=== PATIENT | female | born 1950 | race Caucasian/White ===

== ENCOUNTER 2024-05-06 08:22 | Emergency (ER) | payer MEDICARE, SELFPAY ==
[2024-05-06] VITALS (47 sets, daily range): BP systolic 106–185; BP diastolic 53–97; PULSE 73–100; RESP 15–31; TEMP 36.8–37.8; O2SAT 97–100; BMI 23.3
--- NOTE | 2024-05-06 08:31 | ED.CHESTPAIN ---
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 medical evaluation for this condition in [facility] yesterday, referred here but not seen yesterday, now here for coordination of care. Afebrile, sirs screen negative. Large open draining purulent wound left breast,, with yellow exudate, wound culture sent. Blood culture sent. Lactate and other labs pending. IV vancomycin and cefepime antibiotics initiated after wound and blood cultures. Screening chest x-ray without obvious pleural effusion underlying, nor left lung or mediastinal masses, there is soft tissue shadowing demonstrates soft tissue defect mid left breast on my view, await Radiology reading. CT chest abdomen and pelvis imaging to further delineate extent of suspected tumor/infection, also to look for any metastatic disease below the diaphragm. Anticipate transfer, patient aware. Keep NPO. Patient declines pain medications for now. White blood cell count 52075, lactate mildly elevated, cultures and antibiotics initiated, IV fluid bolus. Hemoglobin 7.2 noted, no signs symptoms on review of systems recent active GI or bleeding, apparently the wound itself has not been bleeding actively. Awaiting CT chest abdomen and pelvis results CT shows extensive left breast area mass with necrotic changes, some mentioned of mediastinal involvement anteriorly. No description of definite subdiaphragmatic metastases like changes. Case discussed with general surgery here Dr. Adams, agrees with need for transfer to higher level care Patient informed, advised transfer to higher level tertiary care facility with cardiothoracic surgery, general surgery, plastic surgery, oncology, etc. Patient expresses understanding, bed search in progress 1145, case discussed with hospitalist Dr. Hall at [facility], there is not great plastic surgery coverage there, suggests tertiary center such as /[facility]. Patient had requested social work administrator consultation, unclear if patient is still consenting to transfer, consider hospice consult. 1210, case discussed with intake, await call back from surgery 1340, case discussed with breast surgery [facility] Dr. Booth, requests patient have admission through hospitalist service, with Oncology, patient will need core biopsy diagnosis of underlying cancer, but would be available for consultation 1600, still awaiting call back from hospitalist per update phone call [place] [facility] [place], declines for saturation, [facility] contacted Repeat hemoglobin 6.8, initially was 7.2 before IV hydration, no active bleeding known, type and screen sent prior, we will transfuse 1 unit packed red blood cells 1830, still awaiting transfer, unclear destination at this time, signed out to oncoming ED shift physician Dr. Ivelisse oviedo: Received turned over. Review patient's history and physical exam. Patient remained stable. I did discuss the case with Dr. Alanis hospitalist at [facility] who accepts the patient in transfer. I do feel patient requires transfer for higher level of care given her social situations in the extent of the necrotic tissue. She has received a dose of antibiotics. Patient is stable for transport. Critical Care Time <Marcus Hamilton MD - Last Filed: 05/07/24 08:12> Critical Care Time Critical Care Time: Yes Total Critical Care Time: 45 Attestation: The high probability of a clinically significant, sudden or life threatening deterioration of the [mammary, cardiopulmonary, musculoskeletal, integumen] system(s) required my full and direct attention, intervention and personal management. The aggregate critical care time was [45] minutes. This time is in addition to time spent performing reported procedures but includes the following: [x] Data Review and interpretation [x] Patient assessment and monitoring of vital signs [x] Documentation [x] Medication orders and management Discharge Plan Departure Patient Disposition: [facility] Clinical Impression: Open wound of left breast, Breast cancer, Mass of mediastinum, Wound infection, Sepsis, Anemia Prescriptions: No Action No Known Home Medications Referrals: Eliza Wallace PA-C [Primary Care Provider] -
--- NOTE | 2024-05-06 08:33 | EKG_ITS ---
[address] [address] Test Date: 2024-05-06 Pat Name: Loren Ragland Department: [facility] Room: Gender: Female C Java Developer: ernestine : 1950 Requested By: Order Number: [id number] Reading MD: Forrest Burch Measurements Intervals [place] Rate: 87 P: 29 WA: 158 QRS: 12 QRSD: 88 T: 13 QT: 370 QTc: 445 Interpretive Statements Normal sinus rhythm Doubt rule out Anterior infarct , age undetermined Electronically Signed On 05-12-2024 9:05:50 PDT by Forrest Burch
[2024-05-06 08:54] LABS: Add Manual Diff / Slide Review NO; Basophils Absolute Auto 100 /uL (0-100); Basophils Percent Auto 0.8 % (0-2); Eosinophils Absolute Auto 100 /uL (0-450); Eosinophils Percent Auto 0.5 % (2-4); Hematocrit 21.9 % (36-46); Hemoglobin 7.2 g/dL (12.0-16.0); Lymphocytes Absolute Auto 1200 /uL (1100-4500); Lymphocytes Percent Auto 7.8 % (25-40); Mean Corpuscular Hemoglobin 27.1 PG (26-34); Mean Corpuscular Volume 81.9 fL (80-100); Monocytes Absolute Auto 1300 /uL (0-900); Monocytes Percent Auto 8.1 % (3-14); Neutrophils Absolute Auto 12800 /uL (1500-7000); Neutrophils Percent Auto 82.8 % (50-75); Platelet Count 755 X10^3/uL (150-400); Red Blood Cell Count 2.68 X10^6/uL (4.0-5.2); Red Cell Distribution Width 18.3 % (11.6-14.8); White Blood Cell Count 15.5 X10^3/uL (4.5-11.0)
--- NOTE | 2024-05-06 08:54 | DI.CT.S_ITS ---
PROCEDURE: CT CHEST ABD PEL W CON INDICATIONS: large necrotic L breast mass, eval for extent/mets TECHNIQUE: After the administration of intravenous contrast, 5 mm thick sections acquired from the lung apices to the symphysis. 5 mm coronal and sagittal reformats were performed, with additional 7 mm MIP reformats through the lungs. For radiation dose reduction, the following was used: automated exposure control, adjustment of mA and/or kV according to patient size. COMPARISON: None. FINDINGS: Image quality: Diagnostic Lungs and pleura: There is a 1.6 cm nodular region at the left costophrenic angle (3/255). No dense airspace disease or pleural effusions. Other areas of possible atelectasis are present. There are mild areas of possible centrilobular nodules and ground-glass opacities in the right lower lung. Mediastinum, heart, and esophagus: Small pericardial effusion. Chest masses described above, invading the anterior mediastinum. There are enlarged anterior mediastinal lymph nodes, for example 2/26 measuring 1.6 cm. Heart size is within normal limits. The esophagus is unremarkable. Chest wall and thyroid: No actionable thyroid nodule identified. Large fungating left chest wall mass measures up to 24 cm in transverse dimension and 25 cm in craniocaudal dimension. There are areas of central necrosis. This extends to the left axilla, midline chest wall overlying the sternum, and invades through the internal mammary region into the anterior mediastinum and pleura. A small amount of adjacent pericardial nodularity is present. Liver: Heterogeneous attenuation, particularly in the right lobe, with hepatomegaly. There is slight nodularity of the contour. Gallbladder and biliary system: Mildly distended with numerous gallstones. No pathologic biliary dilation Pancreas: No ductal dilation Spleen: Nonenlarged Adrenals: No discrete nodules Kidneys: No solid mass or hydronephrosis Vessels and lymph nodes: The main portal vein is patent. No abdominal aortic aneurysm or pathologic lymph nodes by size criteria. Bowel and peritoneum: No bowel obstruction or pathologic ascites. Body wall: Mild diffuse anasarca Pelvis: Bladder is unremarkable. Pelvic calcifications, likely senescent and representing calcified fibroids. These are not well evaluated however on CT Bones: Heterogeneity of the sternum, likely related to the invasive chest wall mass. This also surrounds the surrounding costal cartilages on the left. No acute or suspicious osseous finding elsewhere. There are degenerative changes. IMPRESSION: Overlying skin loss and necrosis. This extends to the region of the left axilla and invades through into the anterior mediastinum, internal mammary region, and anterior pleura. There is encasement of the sternum and costal cartilages. Nodular region of the left pleural/pulmonary costophrenic angle. Other areas of atelectasis and centrilobular nodularity is present, including the lung bases and right lower lobe. There is moderately suspicious subtle pericardial nodularity. Close attention on follow-up is suggested given presumed locally advanced invasive breast cancer. Heterogeneous attenuation of the liver, with hepatomegaly and possible nodularity suggestive of chronic liver disease. This could be further evaluated with MRI in the setting of presumed malignancy. Dictated by: Ramón Becerra M.D. on 05/06/2024 at 10:05 Approved by: Ramón Becerra M.D. on 05/06/2024 at 10:14
[2024-05-06 09:04] LABS: Anisocytosis 1+
[2024-05-06 09:05] LABS: INR 1.1 (0.9-1.3)
[2024-05-06] MEDS: CEFEPIME 2 GM in SODIUM CHLORIDE 0.9% 100 ML IV (09:17)
[2024-05-06] MEDS: SODIUM CHLORIDE 0.9% 1,000 ML 1000 ML IV (09:21)
[2024-05-06 09:28] LABS: Alanine Aminotransferase 22 IU/L (<35); Albumin 3.3 g/dL (3.5-5.0); Albumin Globulin Ratio 1.1 (1.0-2.8); Alkaline Phosphatase 143 U/L (38-126); Aspartate Aminotransferase 32 IU/L (14-36); BUN Creatinine Ratio 16.7 (6-22); Bilirubin Total 0.4 mg/dL (0.2-1.3); Blood Urea Nitrogen 9 mg/dL (7-17); Carbon Dioxide 18 mmol/L (22-32); Chloride 104 mmol/L (98-107); Estimated Glomerular Filt Rate > 60 mL/min (>60); Globulin 2.9 g/dL (1.7-4.1); Glucose 120 mg/dL (80-110); HEMOLYSIS < 15 (0-50); Lactate (Lactic Acid) 3.1 mmol/L (0.7-2.1); Potassium 3.9 mmol/L (3.4-5.1); Sodium 133 mmol/L (137-145); Total Protein 6.2 g/dL (6.3-8.2)
[2024-05-06 10:13] LABS: Appearance Urine UA CLEAR; Bilirubin Urine UA NEGATIVE (NEGATIVE); Color Urine UA YELLOW; Glucose Urine UA NEGATIVE (Negative); Ketones Urine UA NEGATIVE (NEGATIVE); Leukocyte Esterase Urine UA NEGATIVE (NEGATIVE); Nitrite Urine UA NEGATIVE (Negative); Occult Blood Urine UA NEGATIVE (Negative); Protein Urine UA NEGATIVE (Negative); Urobilinogen Urine UA 0.2 E.U./dL (0.2)
[2024-05-06 10:21] LABS: Bacteria Urine None Seen; Culture Indicated Urine Cult Not Indicated; RBC Urine None Seen (0-5/HPF); Squamous Epithelial Cell Urine 0-1 /HPF (0-5/HPF); Urine Volume 10mL (spun); WBC Urine 0-1/HPF (0-5/HPF)
[2024-05-06 10:22] LABS: Reflexed Lactate in 2 Hours Y
[2024-05-06 10:58] LABS: Lactate 2HR (Lactic Acid Rflx) 2.5 mmol/L (0.7-2.1)
[2024-05-06] MEDS: VANCOMYCIN 2,000 MG/400 ML PIGGYBACK 200 MG IV (11:16)
[2024-05-06] MEDS: ACETAMINOPHEN 325 MG TABLET 975 MG PO (16:11)
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
[2024-05-06] MEDS: SODIUM CHLORIDE 0.9% 1,000 ML 100 ML IV (17:51)
[2024-05-06 18:14] LABS: Hematocrit 21.1 % (36-46)
[2024-05-06 18:24] LABS: Hemoglobin 6.8 g/dL (12.0-16.0)
[2024-05-06 18:27] LABS: Lactate (Lactic Acid) 1.8 mmol/L (0.7-2.1)
--- NOTE | 2024-05-06 19:00 | PC.NURSE ---
dressing change to left breast, wound noted with purulent drainage with areas of necrotic appearing tissue noted with a foul smell, no change from pictures taken earlier and attached to chart, dressed with abd pads and telfa, pt without c/o pain, tolerated procedure well
--- NOTE | 2024-05-06 19:25 | PC.NURSE ---
Left breast dressing changed at 1900. Wound bed necrotic with purulent drainage. Non adherent dressing applied with abdominal pads placed over top.
[2024-05-07] VITALS (15 sets, daily range): BP systolic 131–140; BP diastolic 58–64; PULSE 73–86; RESP 15–23; O2SAT 94–99
--- NOTE | 2024-05-07 06:53 | PC.NURSE ---
report given to DUNIA Ferguson at [facility] RN pt is going to [id number]
== END 2024-05-07 06:25 | disposition short-term general hospital (02) ==
PROVIDERS: Emergency Medicine; Emergency Provider Emergency Medicine; PCP Physician Assistant
DX: S21.002A Unspecified open wound of left breast, initial encounter (principal); C50.919 Malignant neoplasm of unspecified site of unspecified female breast; A41.9 Sepsis, unspecified organism; R07.9 Chest pain, unspecified; D64.9 Anemia, unspecified
CPT/HCPCS: 36415; 36430; 71045; 71260; 74177; 80053; 81001; 83605; 85014; 85018; 85025; 85610; 86850; 86900; 86901; 87040; 87070; 87077; 87186; 87205; 93005; 96361; 96365; 96366; 96367; 99285; 99291; P9016; J0692; Q9967

== ENCOUNTER → 2024-05-21 10:34 | Outpatient (CLI) | payer MEDICARE, SELFPAY | PROVIDERS: PCP Physician Assistant; Referring Provider Internal Medicine; Visit Provider Surgery | DX: S21.102A Unspecified open wound of left front wall of thorax without penetration into thoracic cavity, initial encounter (principal); L98.8 Other specified disorders of the skin and subcutaneous tissue; C50.912 Malignant neoplasm of unspecified site of left female breast; D64.9 Anemia, unspecified | CPT/HCPCS: 11042; 11045; 99203; 99213 ==

== ENCOUNTER → 2024-05-28 14:02 | Outpatient (CLI) | payer MEDICARE, SELFPAY | PROVIDERS: PCP Physician Assistant; Referring Provider Internal Medicine; Visit Provider Surgery | DX: S21.002A Unspecified open wound of left breast, initial encounter (principal); L98.8 Other specified disorders of the skin and subcutaneous tissue; L53.9 Erythematous condition, unspecified; C50.912 Malignant neoplasm of unspecified site of left female breast; D64.9 Anemia, unspecified; N64.4 Mastodynia | CPT/HCPCS: 11042; 11045 ==

== ENCOUNTER → 2024-06-03 10:12 | Outpatient (CLI) | payer MEDICARE, SELFPAY | LOC: WC 10:13 | PROVIDERS: PCP Physician Assistant; Referring Provider Physician Assistant; Visit Provider Surgery | DX: S21.002A Unspecified open wound of left breast, initial encounter (principal); L98.8 Other specified disorders of the skin and subcutaneous tissue; L53.9 Erythematous condition, unspecified; C50.912 Malignant neoplasm of unspecified site of left female breast; N64.4 Mastodynia; D64.9 Anemia, unspecified | CPT/HCPCS: 11042; 11045 ==

== ENCOUNTER 2024-06-17 14:31 | Emergency (ER) | payer MEDICARE, SELFPAY ==
[2024-06-17] VITALS (22 sets, daily range): BP systolic 146–180; BP diastolic 65–104; PULSE 80–100; RESP 18; TEMP 36.9; O2SAT 96–100; BMI 24.5
--- NOTE | 2024-06-17 15:20 | ED_ITS ---
HPI - General Adult <Rodrigo Garcia DO - Last Filed: 06/18/24 06:59> General Chief complaint: Weakness Stated complaint: hands and feet Swelling , Numbness Time Seen by Provider: 06/17/24 15:07 Source: patient and family Mode of arrival: Wheelchair History of Present Illness HPI narrative: Patient is a 74-year-old female history of chronic left breast wound, lymphoma status post 1st round of chemotherapy 1 day, chronic lower extremity swelling, comes into the ED from home for evaluation of persistent swelling to lower extremity. Patient states that she was discharged from the hospital at [facility] yesterday, states that she felt like she was ?released too early states that she is worried about taking care of herself at home. She denies any chest pain shortness of breath fever chills nausea vomiting abdominal pain or any other GI/ symptoms. No trauma no falls. She states that the swelling has been persistent for several weeks to months. States that she had swelling to her upper extremities but those have since resolved since her chemotherapy yesterday. Patient states that she does have an appointment on 06/26/2024 for her 2nd round of chemo. She does state that her symptoms are worsened whenever she exerts herself. Related Data Home Medications Medication Instructions Recorded Confirmed acetaminophen 160 mg chewable 640 mg PO Q4-6H PRN Pain (Scale 05/20/24 06/17/24 tablet Score 1-3) levofloxacin 750 mg tablet 750 mg PO DAILY 05/20/24 06/17/24 ergocalciferol (vitamin D2) 1,250 1,250 mcg PO QWEEK 06/17/24 06/17/24 mcg (50,000 unit) capsule loratadine 10 mg tablet 10 mg PO DAILY 06/17/24 06/17/24 morphine 15 mg tablet,extended 15 mg PO Q12H 06/17/24 06/17/24 release (MS Contin) naloxone 3 mg/actuation nasal spray 3 mg intranasal DIRECTED PRN 06/17/24 06/17/24 Opioid Reversal olanzapine 2.5 mg tablet See Rx Instructions .Route .COMPLEX 06/17/24 06/17/24 ondansetron HCl 8 mg tablet 8 mg PO 3XD PRN Nausea 06/17/24 06/17/24 prochlorperazine maleate 10 mg 10 mg PO Q6H 06/17/24 06/17/24 tablet Previous Rx's Medication Instructions Recorded oxycodone 5 mg tablet 5 mg PO Q4H PRN pain #20 tabs 05/20/24 Allergies Allergy/AdvReac Type Severity Reaction Status Date / Time No Known Drug Allergies Allergy Verified 05/05/24 15:17 Review of Systems <Rodrigo Garcia DO - Last Filed: 06/18/24 06:59> Review of Systems Narrative: HEENT: Denies headache, eye drainage, eye irritation, head trauma, sore throat, voice change Cardiovascular: Denies any chest pain, palpitations, shortness of breath, tachycardia Respiratory: Denies any shortness of breath, cough, wheeze, stridor GI/: Denies any abdominal pain, nausea, vomiting, diarrhea, bright red blood per rectum, melanotic stools, urinary frequency, urinary retention, dysuria, hematuria MSK: Positive lower extremity swelling Skin: Denies any rashes, lesions, discoloration Neuro: Denies any headache, lightheadedness, dizziness, fainting, weakness Psych: Denies SI/HI Patient History <Rodrigo Garcia DO - Last Filed: 06/18/24 06:59> Medical History (Updated 06/17/24 @ 17:05 by Rodrigo Garcia DO) Rosacea (~1989) Depression Migraines Broken foot (~1969) Mumps Measles Chicken pox Family History (Updated 05/10/24 @ 18:07 by Lorenza Del Rosario) Father Lung cancer Mother Dementia Social History Smoking Status: Former smoker Smoking Status: Former smoker alcohol intake frequency: a few times a month Substance Use Type: does not use Exam <Rodrigo Garcia DO - Last Filed: 06/18/24 06:59> Narrative Exam Narrative: General: Cooperative, comfortable, well-developed, not in acute distress HEENT: Normocephalic, atraumatic, PERRLA, normal sclera, eyelids normal, Neck: Active full range of motion, atraumatic Chest: Normal to inspection, negative crepitus, no overlying erythema ecchymosis Respiratory: Normal respiratory effort, not in acute respiratory distress, clear to auscultation bilaterally negative cough, wheeze, tachypnea, rhonchi, rales Cardiology: Regular rate rhythm negative gallop, murmur, rubs GI/: Normal to inspection, soft, nonrigid, no tenderness to palpation, exam deferred MSK: Full range of active range of motion of all 4 extremities, atraumatic, bilateral lower extremities with +2 pitting edema Skin: No rashes lesions noted Neuro: Alert awake oriented x3, moves all 4 extremities spontaneously, cranial nerves intact, able to answer all questions appropriately follows commands appropriately Psych: Cooperative, negative suicidal or homicidal ideations Initial Vital Signs Initial Vital Signs: Vital Signs Temperature 98.4 F 06/17/24 14:36 Pulse Rate 94 H 06/17/24 14:36 Respiratory Rate 18 06/17/24 14:36 Blood Pressure 160/70 H 06/17/24 14:36 Pulse Oximetry 96 06/17/24 14:36 Oxygen Delivery Method Room Air 06/17/24 14:36 <Margaret Huntley MD - Last Filed: 06/18/24 02:19> Initial Vital Signs Initial Vital Signs: Vital Signs Temperature 98.4 F 06/17/24 14:36 Pulse Rate 94 H 06/17/24 14:36 Respiratory Rate 18 06/17/24 14:36 Blood Pressure 160/70 H 06/17/24 14:36 Pulse Oximetry 96 06/17/24 14:36 Oxygen Delivery Method Room Air 06/17/24 14:36 Course <Rodrigo Garcia DO - Last Filed: 06/18/24 06:59> Orders Ordered: Discontinued Medications Furosemide (Furosemide 40 Mg/4 Ml Vial) 20 mg IV NOW ONE Stop: 06/17/24 17:06 Last Admin: 06/17/24 17:55 Dose: 20 mg Documented By: BHUPINDER Vital Signs Vital signs: Vital Signs - 8 hr 06/17/24 23:00 06/17/24 23:00 06/17/24 23:30 Pulse Rate 96 H 95 H Respiratory Rate Blood Pressure 172/70 H Pulse Oximetry 98 98 06/17/24 23:30 06/18/24 00:00 06/18/24 00:00 Pulse Rate 102 H Respiratory Rate Blood Pressure 146/65 H 149/68 H Pulse Oximetry 100 06/18/24 00:30 06/18/24 00:30 06/18/24 00:54 Pulse Rate 99 H 101 H Respiratory Rate 18 Blood Pressure 144/64 H Pulse Oximetry 99 100 06/18/24 00:54 06/18/24 01:00 06/18/24 01:00 Pulse Rate 98 H Respiratory Rate 18 Blood Pressure 152/67 H 145/67 H Pulse Oximetry 98 <Margaret Huntley MD - Last Filed: 06/18/24 02:19> Orders Ordered: Discontinued Medications Furosemide (Furosemide 40 Mg/4 Ml Vial) 20 mg IV NOW ONE Stop: 06/17/24 17:06 Last Admin: 06/17/24 17:55 Dose: 20 mg Documented By: BS Vital Signs Vital signs: Vital Signs - 8 hr 06/17/24 23:00 06/17/24 23:00 06/17/24 23:30 Pulse Rate 96 H 95 H Respiratory Rate Blood Pressure 172/70 H Pulse Oximetry 98 98 06/17/24 23:30 06/18/24 00:00 06/18/24 00:00 Pulse Rate 102 H Respiratory Rate Blood Pressure 146/65 H 149/68 H Pulse Oximetry 100 06/18/24 00:30 06/18/24 00:30 06/18/24 00:54 Pulse Rate 99 H 101 H Respiratory Rate 18 Blood Pressure 144/64 H Pulse Oximetry 99 100 06/18/24 00:54 06/18/24 01:00 06/18/24 01:00 Pulse Rate 98 H Respiratory Rate 18 Blood Pressure 152/67 H 145/67 H Pulse Oximetry 98 Medical Decision Making <Rodrigo Garcia DO - Last Filed: 06/18/24 06:59> Differential Diagnosis Differential Diagnosis: DVT, electrolyte abnormality, CHF, ACS Lab Data 06/17/24 15:46 06/17/24 15:46 Labs: Lab Results 06/17/24 Range/Units 15:46 WBC 17.9 H (4.5-11.0) X10^3/uL RBC 3.16 L (4.0-5.2) X10^6/uL Hgb 9.3 L (12.0-16.0) g/dL Hct 28.2 L (36-46) % MCV 89.3 (80-100) fL MCH 29.4 (26-34) PG MCHC 33.0 (30-36) % RDW 17.5 H (11.6-14.8) % Plt Count 380 (150-400) X10^3/uL Neut % (Auto) Not Reportable Lymph % (Auto) Not Reportable [place] % (Auto) Not Reportable Eos % (Auto) Not Reportable Baso % (Auto) Not Reportable Lymph # (Auto) Not Reportable [place] # (Auto) Not Reportable Baso # (Auto) Not Reportable Total Counted 100 Seg Neutrophils % 61.0 (38-70) % Band Neutrophils % 17.0 H (3-7) % Lymphocytes % (Manual) 3.0 L (25-45) % Monocytes % (Manual) 3.0 (2-11) % Metamyelocytes % 8.0 H (-0) % Myelocytes % 7.0 H (-0) % Promyelocytes % 1.0 H (-0) % Neutrophils # (Manual) 15270 H (9639-8908) /uL Smudge Cells 1+ H Toxic Granulation Present H Toxic Vacuolation Present H Dohle Bodies 1+ H RBC Morphology See below Anisocytosis 1+ H Stomatocytes 1+ H Sodium 136 L (137-145) mmol/L Potassium 3.8 (3.4-5.1) mmol/L Chloride 102 (98-107) mmol/L Carbon Dioxide 29 (22-32) mmol/L BUN 17 (7-17) mg/dL Creatinine 0.59 (0.52-1.04) mg/dL Estimated GFR > 60 (>60) mL/min BUN/Creatinine Ratio 28.8 H (6-22) Glucose 103 (80-110) mg/dL Calcium 9.3 (8.4-10.2) mg/dL Magnesium 2.2 (1.6-2.3) mg/dL Total Creatine Kinase < 20 L (30-135) U/L Troponin I < 0.012 (0.01-0.034) ng/mL NT-Pro-B Natriuret Pep 2080 H (<125) pg/mL Imaging Data Chest x-ray: Radiologist's Impression: PROCEDURE: XR CHEST 1V INDICATIONS: Chest pain TECHNIQUE: One view of the chest was acquired. COMPARISON: [facility], CR, XR CHEST 1V, 05/06/2024, 8:34. FINDINGS: Surgical changes and devices: Right chest wall port tip projects over the cavoatrial junction. Lungs and pleura: Small focus of linear consolidation in the left lower lobe. Mediastinum: Mediastinal contours appear normal. Heart size is normal. Bones and chest wall: No suspicious bony lesions. Overlying soft tissues appear unremarkable. IMPRESSION: Small focus of under consolidation in the left lower lobe, which could represent pneumonia or atelectasis. ECG Data Attestation: I personally reviewed and interpreted this ECG as follows: Interpretation: EKG interpreted ED physician sinus 82 beats per minute QTC 464, normal axis, nonspecific ST changes, no STEMI MDM Narrative Medical decision making narrative: Patient is a 74-year-old female history of recent diagnosis lymphoma with chronic wound to the left breast, comes into the ED from home for worsening lower extremity swelling weakness and shortness of breath. She states that she was discharged from [facility] today but was having persistent lower extremity swelling and weakness, ultrasound negative for DVT, x-ray does show possible pneumonia but patient is already on antibiotics for this. EKG nonischemic trop negative, however BNP at 0 consistent with new onset CHF. Patient has care at [facility] with her oncologist, will reach out to admitting doctor there for transfer. Patient updated in regards to these findings understands and agrees with this plan. 1719: Discussed case with [facility], awaiting call back accepting doctor <Margaret Huntley MD - Last Filed: 06/18/24 02:19> Lab Data Labs: Lab Results 06/17/24 Range/Units 15:46 WBC 17.9 H (4.5-11.0) X10^3/uL RBC 3.16 L (4.0-5.2) X10^6/uL Hgb 9.3 L (12.0-16.0) g/dL Hct 28.2 L (36-46) % MCV 89.3 (80-100) fL MCH 29.4 (26-34) PG MCHC 33.0 (30-36) % RDW 17.5 H (11.6-14.8) % Plt Count 380 (150-400) X10^3/uL Neut % (Auto) Not Reportable Lymph % (Auto) Not Reportable [place] % (Auto) Not Reportable Eos % (Auto) Not Reportable Baso % (Auto) Not Reportable Lymph # (Auto) Not Reportable [place] # (Auto) Not Reportable Baso # (Auto) Not Reportable Total Counted 100 Seg Neutrophils % 61.0 (38-70) % Band Neutrophils % 17.0 H (3-7) % Lymphocytes % (Manual) 3.0 L (25-45) % Monocytes % (Manual) 3.0 (2-11) % Metamyelocytes % 8.0 H (-0) % Myelocytes % 7.0 H (-0) % Promyelocytes % 1.0 H (-0) % Neutrophils # (Manual) 21512 H (7865-1426) /uL Smudge Cells 1+ H Toxic Granulation Present H Toxic Vacuolation Present H Dohle Bodies 1+ H RBC Morphology See below Anisocytosis 1+ H Stomatocytes 1+ H Sodium 136 L (137-145) mmol/L Potassium 3.8 (3.4-5.1) mmol/L Chloride 102 (98-107) mmol/L Carbon Dioxide 29 (22-32) mmol/L BUN 17 (7-17) mg/dL Creatinine 0.59 (0.52-1.04) mg/dL Estimated GFR > 60 (>60) mL/min BUN/Creatinine Ratio 28.8 H (6-22) Glucose 103 (80-110) mg/dL Calcium 9.3 (8.4-10.2) mg/dL Magnesium 2.2 (1.6-2.3) mg/dL Total Creatine Kinase < 20 L (30-135) U/L Troponin I < 0.012 (0.01-0.034) ng/mL NT-Pro-B Natriuret Pep 2080 H (<125) pg/mL MDM Narrative Medical decision making narrative: Patient is a 74-year-old female history of recent diagnosis lymphoma with chronic wound to the left breast, comes into the ED from home for worsening lower extremity swelling weakness and shortness of breath. She states that she was discharged from [facility] today but was having persistent lower extremity swelling and weakness, ultrasound negative for DVT, x-ray does show possible pneumonia but patient is already on antibiotics for this. EKG nonischemic trop negative, however BNP at 2080 consistent with new onset CHF. Patient has care at [facility] with her oncologist, will reach out to admitting doctor there for transfer. Patient updated in regards to these findings understands and agrees with this plan. 1719: Discussed case with [facility], awaiting call back accepting doctor Dr. Huntley - care of atient signed to me by daytime physician. Accepted at by Dr. Macdonald. Monitored without issue until ALS transport arrived. Discharge Plan Departure Patient Disposition: [facility] Hospital Clinical Impression: New onset of congestive heart failure Prescriptions: No Action ergocalciferol (vitamin D2) 1,250 mcg (50,000 unit) Capsule 1,250 mcg PO QWEEK ondansetron HCl 8 mg tablet 8 mg PO 3XD PRN (Reason: Nausea) prochlorperazine maleate 10 mg tablet 10 mg PO Q6H olanzapine 2.5 mg tablet See Rx Instructions .ROUTE .COMPLEX Rx Instructions: 1-2 tabs bedtime on days 1,2,3,4 of chemotherapy morphine [MS Contin] 15 mg Tablet Extended Release 15 mg PO Q12H loratadine 10 mg Tablet 10 mg PO DAILY naloxone 3 mg/actuation [place],Non-Aerosol 3 mg INTRANASAL DIRECTED PRN (Reason: Opioid Reversal) levofloxacin 750 mg tablet 750 mg PO DAILY acetaminophen 160 mg tablet,chewable 640 mg PO Q4-6H PRN (Reason: Pain (Scale Score 1-3)) oxycodone 5 mg tablet 5 mg PO Q4H PRN (Reason: pain) Qty: 20 0RF Referrals: Eliza Wallace PA-C [Primary Care Provider] -
--- NOTE | 2024-06-17 15:21 | DI.US.S_ITS ---
PROCEDURE: US PERIPH VENOUS LOW EXTREM BI INDICATIONS: SWELLING TECHNIQUE: Real-time imaging, as well as color and pulse Doppler interrogation, were performed of the deep veins of both legs from the inguinal ligament to the popliteal fossa, with documentation of the visualized calf veins. COMPARISON: None. FINDINGS: Right: The common femoral, femoral, popliteal, and the visualized calf veins are normally compressible, and free of intraluminal thrombus. Color and pulse Doppler demonstrate normal phasic intravascular flow. There is normal augmentation response to distal compression maneuver. Right Lawson's cyst measuring 2.7 x 2.1 x 1.1 cm. Left: The common femoral, femoral, popliteal, and the visualized calf veins are normally compressible, and free of intraluminal thrombus. Color and pulse Doppler demonstrate normal phasic intravascular flow. There is normal augmentation response to distal compression maneuver. IMPRESSION: No findings of deep venous thrombosis in either lower extremity. Right Lawson's cyst measuring 2.7 x 2.2 x 1.1 cm. Dictated by: Adonis Easton M.D. on 06/17/2024 at 16:20 Approved by: Adonis Easton M.D. on 06/17/2024 at 16:20
--- NOTE | 2024-06-17 15:26 | DI.RAD.S_ITS ---
PROCEDURE: XR CHEST 1V INDICATIONS: Chest pain TECHNIQUE: One view of the chest was acquired. COMPARISON: [facility], CR, XR CHEST 1V, 05/06/2024, 8:34. FINDINGS: Surgical changes and devices: Right chest wall port tip projects over the cavoatrial junction. Lungs and pleura: Small focus of linear consolidation in the left lower lobe. Mediastinum: Mediastinal contours appear normal. Heart size is normal. Bones and chest wall: No suspicious bony lesions. Overlying soft tissues appear unremarkable. IMPRESSION: Small focus of under consolidation in the left lower lobe, which could represent pneumonia or atelectasis. Dictated by: Adonis Easton M.D. on 06/17/2024 at 16:34 Approved by: Adonis Easton M.D. on 06/17/2024 at 16:35
--- NOTE | 2024-06-17 15:35 | EKG_ITS ---
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
[2024-06-17 16:07] LABS: Add Manual Diff / Slide Review YES; Hematocrit 28.2 % (36-46); Hemoglobin 9.3 g/dL (12.0-16.0); Mean Corpuscular Hemoglobin 29.4 PG (26-34); Mean Corpuscular Volume 89.3 fL (80-100); Platelet Count 380 X10^3/uL (150-400); Red Blood Cell Count 3.16 X10^6/uL (4.0-5.2); Red Cell Distribution Width 17.5 % (11.6-14.8); White Blood Cell Count 17.9 X10^3/uL (4.5-11.0)
[2024-06-17 16:14] LABS: Creatine Kinase < 20 U/L (30-135); Magnesium 2.2 mg/dL (1.6-2.3)
[2024-06-17 16:22] LABS: Neutrophils Absolute Manual 13962 /uL (3000-5900); Total Cells Counted 100
[2024-06-17 16:23] LABS: BUN Creatinine Ratio 28.8 (6-22); Blood Urea Nitrogen 17 mg/dL (7-17); Calcium 9.3 mg/dL (8.4-10.2); Carbon Dioxide 29 mmol/L (22-32); Chloride 102 mmol/L (98-107); Estimated Glomerular Filt Rate > 60 mL/min (>60); Glucose 103 mg/dL (80-110); HEMOLYSIS < 15 (0-50); Potassium 3.8 mmol/L (3.4-5.1); Sodium 136 mmol/L (137-145)
[2024-06-17 16:27] LABS: NT-proBNP (BNP-Adult 18+) 2080 pg/mL (<125); Troponin I < 0.012 ng/mL (0.01-0.034)
[2024-06-17 16:28] LABS: Anisocytosis 1+
[2024-06-17 16:29] LABS: Dohle Bodies 1+
[2024-06-17 16:30] LABS: Toxic Granulation Present; Toxic Vacuolation Present
[2024-06-17 16:31] LABS: Smudge Cells 1+; Stomatocytes 1+
--- NOTE | 2024-06-17 17:31 | PC.NURSE ---
New brief provided
[2024-06-17] MEDS: FUROSEMIDE 40 MG/4 ML VIAL 20 MG IV (17:55)
--- NOTE | 2024-06-17 23:42 | PC.NURSE ---
[facility] ETA 0050 Dr Macdonald accepted Report [id number] [id number] # [id number]
[2024-06-18] VITALS: BP 149/68; PULSE 102; O2SAT 100
[2024-06-18 00:30] VITALS: BP 144/64; PULSE 99; RESP 18; O2SAT 99
[2024-06-18 00:54] VITALS: BP 152/67; PULSE 101; O2SAT 100
[2024-06-18 01:00] VITALS: BP 145/67; PULSE 98; RESP 18; O2SAT 98
== END 2024-06-18 01:33 | disposition short-term general hospital (02) ==
PROVIDERS: Emergency Provider Student in an Organized Health Care Education/Training Program; PCP Physician Assistant
DX: I50.9 Heart failure, unspecified (principal); R07.9 Chest pain, unspecified; R60.9 Edema, unspecified; R06.02 Shortness of breath; R79.89 Other specified abnormal findings of blood chemistry
CPT/HCPCS: 36415; 71045; 80048; 82550; 83735; 83880; 84484; 85007; 85025; 93005; 93010; 93970; 96374; 99284; 99285; J1940

== ENCOUNTER → 2024-06-30 09:09 | Outpatient (CLI) | payer MEDICARE, SELFPAY | LOC: WC 09:11 | PROVIDERS: PCP Physician Assistant; Referring Provider Internal Medicine; Visit Provider Surgery | DX: S21.102A Unspecified open wound of left front wall of thorax without penetration into thoracic cavity, initial encounter (principal); L98.8 Other specified disorders of the skin and subcutaneous tissue; C50.912 Malignant neoplasm of unspecified site of left female breast; D64.9 Anemia, unspecified | CPT/HCPCS: 11042; 11045; 99213 ==

== ENCOUNTER → 2024-07-07 08:42 | Outpatient (CLI) | payer MEDICARE, SELFPAY | LOC: WC 08:43 | PROVIDERS: PCP Physician Assistant; Visit Provider Surgery | DX: L98.8 Other specified disorders of the skin and subcutaneous tissue (principal); S21.102A Unspecified open wound of left front wall of thorax without penetration into thoracic cavity, initial encounter; C50.912 Malignant neoplasm of unspecified site of left female breast; D64.9 Anemia, unspecified | CPT/HCPCS: 11042; 11045 ==

== ENCOUNTER → 2024-07-15 15:32 | Outpatient (CLI) | payer MEDICARE, MEDICAID, SELFPAY | PROVIDERS: PCP Physician Assistant; Referring Provider Internal Medicine; Visit Provider Surgery | DX: S21.102A Unspecified open wound of left front wall of thorax without penetration into thoracic cavity, initial encounter (principal); L98.8 Other specified disorders of the skin and subcutaneous tissue; C50.912 Malignant neoplasm of unspecified site of left female breast; D64.9 Anemia, unspecified | CPT/HCPCS: 11042; 11045 ==

== ENCOUNTER → 2024-07-21 09:15 | Outpatient (CLI) | payer MEDICARE, SELFPAY | LOC: WC 09:16 | PROVIDERS: PCP Physician Assistant; Referring Provider Internal Medicine; Visit Provider Surgery | DX: L98.8 Other specified disorders of the skin and subcutaneous tissue (principal); S21.102A Unspecified open wound of left front wall of thorax without penetration into thoracic cavity, initial encounter; C50.912 Malignant neoplasm of unspecified site of left female breast; D64.9 Anemia, unspecified | CPT/HCPCS: 11042; 11045 ==

== ENCOUNTER → 2024-07-28 10:31 | Outpatient (CLI) | payer MEDICARE, SELFPAY | PROVIDERS: PCP Physician Assistant; Referring Provider Internal Medicine; Visit Provider Surgery | DX: L98.8 Other specified disorders of the skin and subcutaneous tissue (principal); S21.102A Unspecified open wound of left front wall of thorax without penetration into thoracic cavity, initial encounter; C50.912 Malignant neoplasm of unspecified site of left female breast; D64.9 Anemia, unspecified; Z79.01 Long term (current) use of anticoagulants | CPT/HCPCS: 11042; 11045 ==

== ENCOUNTER → 2024-08-04 10:19 | Outpatient (CLI) | payer MEDICARE, SELFPAY | PROVIDERS: PCP Physician Assistant; Visit Provider Surgery | DX: L59.8 Other specified disorders of the skin and subcutaneous tissue related to radiation (principal); S21.102A Unspecified open wound of left front wall of thorax without penetration into thoracic cavity, initial encounter; I89.0 Lymphedema, not elsewhere classified; C50.912 Malignant neoplasm of unspecified site of left female breast | CPT/HCPCS: 11042; 11045; 99213 ==

== ENCOUNTER → 2024-08-11 09:04 | Outpatient (CLI) | payer MEDICARE, SELFPAY | PROVIDERS: PCP Physician Assistant; Visit Provider Surgery | DX: L98.8 Other specified disorders of the skin and subcutaneous tissue (principal); S21.102A Unspecified open wound of left front wall of thorax without penetration into thoracic cavity, initial encounter; C50.912 Malignant neoplasm of unspecified site of left female breast; D64.9 Anemia, unspecified; Z79.01 Long term (current) use of anticoagulants | CPT/HCPCS: 11042; 11045 ==

== ENCOUNTER → 2024-08-18 10:57 | Outpatient (CLI) | payer MEDICARE, SELFPAY | PROVIDERS: PCP Physician Assistant; Referring Provider Internal Medicine; Visit Provider Surgery | DX: L98.8 Other specified disorders of the skin and subcutaneous tissue (principal); S21.102A Unspecified open wound of left front wall of thorax without penetration into thoracic cavity, initial encounter; C50.912 Malignant neoplasm of unspecified site of left female breast; D64.9 Anemia, unspecified; Z79.01 Long term (current) use of anticoagulants | CPT/HCPCS: 11042; 11045 ==

== ENCOUNTER → 2024-08-25 09:47 | Outpatient (CLI) | payer MEDICARE, SELFPAY | PROVIDERS: PCP Family Medicine; Referring Provider Internal Medicine; Visit Provider Surgery | DX: L98.8 Other specified disorders of the skin and subcutaneous tissue (principal); S21.002A Unspecified open wound of left breast, initial encounter; C50.912 Malignant neoplasm of unspecified site of left female breast; D64.9 Anemia, unspecified | CPT/HCPCS: 11042; 11045 ==

== ENCOUNTER → 2024-09-01 08:41 | Outpatient (CLI) | payer MEDICARE, SELFPAY | LOC: WC 08:42 | PROVIDERS: Family Provider Family Medicine; PCP Family Medicine; Referring Provider Internal Medicine; Visit Provider Surgery | DX: L98.8 Other specified disorders of the skin and subcutaneous tissue (principal); S21.002A Unspecified open wound of left breast, initial encounter; C50.919 Malignant neoplasm of unspecified site of unspecified female breast; D64.9 Anemia, unspecified | CPT/HCPCS: 11042; 11045; 99213 ==

== ENCOUNTER → 2024-09-15 09:19 | Outpatient (CLI) | payer MEDICARE, SELFPAY | LOC: WC 09:20 | PROVIDERS: Family Provider Family Medicine; PCP Family Medicine; Referring Provider Internal Medicine; Visit Provider Surgery | DX: L98.8 Other specified disorders of the skin and subcutaneous tissue (principal); S21.102A Unspecified open wound of left front wall of thorax without penetration into thoracic cavity, initial encounter; C50.912 Malignant neoplasm of unspecified site of left female breast; D64.9 Anemia, unspecified | CPT/HCPCS: 11042; 11045 ==

== ENCOUNTER → 2024-09-23 11:19 | Outpatient (CLI) | payer MEDICARE, MEDICAID, SELFPAY | PROVIDERS: Family Provider Family Medicine; PCP Family Medicine; Referring Provider Family Medicine; Visit Provider Surgery | DX: L98.8 Other specified disorders of the skin and subcutaneous tissue (principal); S21.102A Unspecified open wound of left front wall of thorax without penetration into thoracic cavity, initial encounter; L08.89 Other specified local infections of the skin and subcutaneous tissue; C50.912 Malignant neoplasm of unspecified site of left female breast; D64.9 Anemia, unspecified | CPT/HCPCS: 11042 ==

== ENCOUNTER → 2024-09-30 09:30 | Outpatient (CLI) | payer MEDICARE, MEDICAID, SELFPAY | PROVIDERS: Family Provider Family Medicine; PCP Family Medicine; Referring Provider Internal Medicine; Visit Provider Surgery | DX: L98.8 Other specified disorders of the skin and subcutaneous tissue (principal); S21.002A Unspecified open wound of left breast, initial encounter; D64.9 Anemia, unspecified; C50.912 Malignant neoplasm of unspecified site of left female breast | CPT/HCPCS: 11042; 99213 ==

== ENCOUNTER → 2024-10-07 11:14 | Outpatient (CLI) | payer MEDICARE, MEDICAID, SELFPAY | PROVIDERS: Family Provider Family Medicine; PCP Family Medicine; Referring Provider Internal Medicine; Visit Provider Surgery | DX: S21.002A Unspecified open wound of left breast, initial encounter (principal); C50.912 Malignant neoplasm of unspecified site of left female breast | CPT/HCPCS: 11042 ==

== ENCOUNTER → 2024-10-14 09:18 | Outpatient (CLI) | payer MEDICARE, MEDICAID, SELFPAY | LOC: WC 09:42 | PROVIDERS: Family Provider Family Medicine; PCP Family Medicine; Referring Provider Internal Medicine; Visit Provider Surgery | DX: S21.102A Unspecified open wound of left front wall of thorax without penetration into thoracic cavity, initial encounter (principal); C50.912 Malignant neoplasm of unspecified site of left female breast | CPT/HCPCS: 11042 ==

== ENCOUNTER → 2024-10-28 10:25 | Outpatient (CLI) | payer MEDICARE, MEDICAID, SELFPAY | LOC: WC 10:31 | PROVIDERS: Family Provider Family Medicine; PCP Family Medicine; Referring Provider Internal Medicine; Visit Provider Surgery | DX: S21.002A Unspecified open wound of left breast, initial encounter (principal); C50.912 Malignant neoplasm of unspecified site of left female breast; I89.0 Lymphedema, not elsewhere classified; R21 Rash and other nonspecific skin eruption | CPT/HCPCS: 11042; 99213 ==

== ENCOUNTER → 2024-11-11 09:09 | Outpatient (CLI) | payer MEDICARE, MEDICAID, SELFPAY | PROVIDERS: Family Provider Family Medicine; PCP Family Medicine; Referring Provider Internal Medicine; Visit Provider Surgery | DX: L59.8 Other specified disorders of the skin and subcutaneous tissue related to radiation (principal); S21.002A Unspecified open wound of left breast, initial encounter; Z85.3 Personal history of malignant neoplasm of breast | CPT/HCPCS: 11042 ==

== ENCOUNTER → 2024-11-26 13:17 | Outpatient (CLI) | payer MEDICARE, MEDICAID, SELFPAY | PROVIDERS: Family Provider Family Medicine; PCP Family Medicine; Referring Provider Internal Medicine; Visit Provider Surgery | DX: L98.8 Other specified disorders of the skin and subcutaneous tissue (principal); S21.002A Unspecified open wound of left breast, initial encounter; D64.9 Anemia, unspecified; C50.912 Malignant neoplasm of unspecified site of left female breast; C85.90 Non-Hodgkin lymphoma, unspecified, unspecified site | CPT/HCPCS: 11042; 99213 ==

== ENCOUNTER → 2024-12-09 09:15 | Outpatient (CLI) | payer MEDICARE, MEDICAID, SELFPAY | PROVIDERS: Family Provider Family Medicine; PCP Family Medicine; Referring Provider Internal Medicine; Visit Provider Surgery | DX: L59.8 Other specified disorders of the skin and subcutaneous tissue related to radiation (principal); S21.002A Unspecified open wound of left breast, initial encounter; L53.8 Other specified erythematous conditions | CPT/HCPCS: 11042; 87070; 87075; 87205 ==

== ENCOUNTER 2024-12-23 08:15 | Outpatient (RCR) | payer MEDICARE, MEDICAID, SELFPAY ==
--- NOTE | 2024-10-01 16:55 | PT.OIE ---
Current Diagnoses Pain in left foot (10/01/24) Difficulty in walking, not elsewhere classified (10/01/24) Other abnormalities of gait and mobility (10/01/24) Weakness (10/01/24) Past Medical History (Last Updated 05/10/24 @ 18:05 by Lorenza Del Rosario) Broken foot (~1969) Chicken pox Depression Measles Migraines Mumps Rosacea (~1989) Visit Care Team Role Provider Type Regine Prakash MD Attending Provider Physician Family Provider Primary Care Provider Referring Provider Specialty: Family Practice [employer] Address: [address] [place] [address], [employer] Email: [email or web address] Physical Therapy Initial Evaluation PT-OP-A Visit Information Start: 09/25/24 17:27 Freq: Status: Active Protocol: Document 10/01/24 10:39 SAK (Rec: 10/01/24 11:28 SAK [id number]) Out-Patient Physical Therapy Visit Information Visit Information Visit Type Initial Evaluation Visit Start Time 10:50 Visit Stop Time 11:30 Visit Number 1 Evaluation Information Evaluation Date 10/01/24 Precautions Precautions patient currently undergoing chemo PT-OP-B Current Condition Start: 09/25/24 17:27 Freq: Status: Active Protocol: Document 10/01/24 10:39 SAK (Rec: 10/01/24 11:28 SAK [id number]) Current Condition History of Current Condition Onset Date May 2024 Current Complaints left foot pain History of Current Condition Patient fell through rotten plank in deck, heel stuck, immediate left foot pain. x- ray negative. Went to hospital due to not feeling well about that time and was there for 22 days due to sepsis, no treatement for foot . Reports Left foot atrophied (as well as my bladder muscles, also want to deal with that.) At this time limps majority of the time, can do short distance across the room with min pain if focuses on her gait. Hasn' t used an assistive device recently. Pain varies from minimal to severe.0-9/10. Currently being treated for left chest wound seeing wound care. Current treatment for lymphoma; has 2 more chemo sessions scheduled. Side effects experiencing dizziness . Has lightening bolt pains sometimes in chest previously related to chest wound , now experiences the lightning bolt pain in foot. Difficult to move from sit to stand. Initially used a walker and a walking boot, reports a cane throws off her balance. States pain is random, most often comes at night, during day sensation of rock bruises on left heel. Wears copper compression socks. Prior Treatments and Tests x-ray negative. Treatment Goals Patient/Caregiver Goals Wants to be able to walk without pain. Prior Functional Status Baseline Function- ADL's Independent Baseline Function- Mobility Independent Baseline Function- Gait no limitations Current Functional Impairments (Reported) Functional Limitations- ADL's painful Functional Limitations- Mobility/Gait antalgic gait, very limited distance Functional Limitations- Work/School retired Functional Limitations- Recreation/ can't take walks Hobbies PT-OP-C Subjective Start: 09/25/24 17:27 Freq: Status: Active Protocol: Document 10/01/24 10:39 [facility] (Rec: 10/01/24 16:55 [facility] [id number]) OP-PT Pain Assessment Pain Assessment Grid Paper Pain Assessment Grid Completed Yes Location Left Foot Intensity 9 Scale Used Numeric (0 - 10) PT-OP-D Balance Start: 09/25/24 17:27 Freq: Status: Active Protocol: Document 10/01/24 10:39 SAK (Rec: 10/01/24 16:55 [facility] [id number]) OP-PT Balance Assessment Standing Balance Standing Balance Comments right 12 sec, left 0 Arvizu Fall Scale Copyright Permission PT-OP-G Mobility & Gait Start: 09/25/24 17:27 Freq: Status: Active Protocol: Document 10/01/24 10:39 SAK (Rec: 10/01/24 16:55 [facility] [id number]) OP Mobility Evaluation Transfers Sit to Stand decreased wb left LE OP Gait Assessment Gait Gait Assistance Required: Independent Assistive Devices Assistive Device None Gait Deviations General Gait Pattern Antalgic Stair Climbing Evaluation Evaluation Level of Assist On Stairs Independent Technique/Endurance Stair Climbing Technique Step to Step PT-OP-H Neuro Start: 09/25/24 17:27 Freq: Status: Active Protocol: Document 10/01/24 10:39 SAK (Rec: 10/01/24 16:55 [facility] [id number]) Sensation Evaluation Gross Sensation Gross Sensation WNL PT-OP-J Posture/Palpation/Skin Start: 09/25/24 17:27 Freq: Status: Active Protocol: Document 10/01/24 10:39 SAK (Rec: 10/01/24 16:55 [facility] [id number]) Posture Evaluation Position Standing Ankle/Foot Posture (L) Supinated Foot Arch (L) High Arch Palpation Assessment Location left foot Palpation Findings Tenderness PT-OP-K Range of Motion Start: 09/25/24 17:27 Freq: Status: Active Protocol: Document 10/01/24 10:39 SAK (Rec: 10/01/24 16:55 [facility] [id number]) Ankle and Foot Goniometric Range of Motion Ankle and Foot aris Ankle/Foot ROM WFL Yes PT-OP-M Strength Start: 09/25/24 17:27 Freq: Status: Active Protocol: Document 10/01/24 10:39 SAK (Rec: 10/01/24 16:55 [facility] [id number]) Ankle/Foot Strength Ankle and Foot Manual Muscle Testing Left Dorsiflexion (L4) 4 Good Plantarflexion (S1) 4- Good- Inversion 4 Good Eversion (S1) 4 Good Right Dorsiflexion (L4) 5 Normal Plantarflexion (S1) 5 Normal Inversion 5 Normal Eversion (S1) 5 Normal Toe Strength Toe Manual Muscle Testing Left Flexion 4- Good- Extension 4 Good Right Flexion 5 Normal Extension 5 Normal PT-OP-Q Treatments Start: 09/25/24 17:27 Freq: Status: Active Protocol: Document 10/01/24 10:39 SAK (Rec: 10/01/24 16:55 [facility] [id number]) Self-Care/Home Management Treatment Education Patient Education Home Exercise Program,Pain Management Other Education issued written HO PT-OP-T Assessment and Plan Start: 09/25/24 17:27 Freq: Status: Active Protocol: Document 10/01/24 10:39 SAK (Rec: 10/01/24 11:28 [facility] [id number]) Physical Therapy Assessment Rehab Potential Rehabilitation Potential Good Evaluation Complexity Number of Personal Factors/Comorbidities 1-2 Number of Body Systems Impaired 3 Clinical Presentation at Evaluation Evolving Impairments Impairments Activity Tolerance,Gait,Pain, Strength Goals Three Impairment poor balance, unable to stand on left LE Senior Living Goal (LTG) 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 to vinyl dipper left LE for at least 10 sec as measure of improved balance and decreased pain left LE LTG Duration 11/29/24 Two Impairment antalgic gait, step-to pattern on stairs Short Term Goal (STG) 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 to ambulate with no limp on level surfaces STG Duration 11/01/24 Senior Living Goal (LTG) 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 to ambulate on all surfaces without limp and alternating pattern on stairs LTG Duration 11/29/24 One Impairment weakness left foot and ankle Short Term Goal (STG) Patient to be instructed in HEP for purposes of left ankle and foot strengthenibng STG Duration 11/01/24 Senior Living Goal (LTG) Patient to be independent with HEP and demonstrate improvement in left foot and ankle strength to 5/5 LTG Duration 11/29/24 Assessment Summary Assessment Patient presents to PT with function-limiting pain left foot and ankle after falling through rotten plank on her deck. X-ray negative but patient diagnosed with sepsis at that time and was in hospital for 22 days. Visible atrophy left calf: calf circumference right 30.8, left 29.5cm. ROM WNL but strength decreased left foot and ankle , foot positioned in supination. Patient ambulates with antalgic gait and demonstrates decreased weight- bearing left LE with all functional movements including sit to stand transfers, standing, and gait. She denies numbness and tingling. Feel she will benefit from PT to decrease her pain and improve her strength, gait, and balance left foot and ankle. Discussed POC and she was in agreement. Patient highly interested in alternative medicine. Physical Therapy Plan Frequency and Duration Frequency of Treatment 2x/Week Duration of treatment (weeks) 8 Plan of Care Start Date 10/01/24 Plan of Care End Date 11/29/24 Therapeutic Interventions Therapeutic Interventions Gait Training,Home Exercise Program,Manual Therapy, Neuromuscular Re-education, Patient/Caregiver Education, Self-Care/Home Management,Soft Tissue Mobilization,Taping, Therapeutic Activities, Therapeutic Exercises Modalities Cold Pack/Ice Massage,Electric Stimulation,Hot Packs Next Visit Focus/Plan Next Note Type Treatment Note Next Visit Plan Start with recumbant elliptical, review HEP, gentle progression of HEP. Consider KT tape.
--- NOTE | 2024-10-06 11:44 | PT.OTN ---
Current Diagnoses Pain in left foot (10/06/24) Difficulty in walking, not elsewhere classified (10/06/24) Other abnormalities of gait and mobility (10/06/24) Weakness (10/06/24) Physical Therapy Treatment Note PT-OP-A Visit Information Start: 09/25/24 17:27 Freq: Status: Active Protocol: Document 10/06/24 09:18 AB (Rec: 10/06/24 11:43 AB [id number]) Out-Patient Physical Therapy Visit Information Visit Information Visit Type Treatment Note Visit Start Time 10:46 Visit Stop Time 11:35 Visit Number 2 Number of CABLE STRETCHER AND TESTER Visits 1 Evaluation Information Evaluation Date 10/01/24 Precautions Precautions patient currently undergoing chemo PT-OP-B Current Condition Start: 09/25/24 17:27 Freq: Status: Active Protocol: Document 10/01/24 10:39 SAK (Rec: 10/01/24 11:28 SAK [id number]) Current Condition History of Current Condition Onset Date May 2024 Current Complaints left foot pain History of Current Condition Patient fell through rotten plank in deck, heel stuck, immediate left foot pain. x- ray negative. Went to hospital due to not feeling well about that time and was there for 22 days due to sepsis, no treatement for foot . Reports Left foot atrophied (as well as my bladder muscles, also want to deal with that.) At this time limps majority of the time, can do short distance across the room with min pain if focuses on her gait. Hasn' t used an assistive device recently. Pain varies from minimal to severe.0-9/10. Currently being treated for left chest wound seeing wound care. Current treatment for lymphoma; has 2 more chemo sessions scheduled. Side effects experiencing dizziness . Has lightening bolt pains sometimes in chest previously related to chest wound , now experiences the lightning bolt pain in foot. Difficult to move from sit to stand. Initially used a walker and a walking boot, reports a cane throws off her balance. States pain is random, most often comes at night, during day sensation of rock bruises on left heel. Wears copper compression socks. Prior Treatments and Tests x-ray negative. Treatment Goals Patient/Caregiver Goals Wants to be able to walk without pain. Prior Functional Status Baseline Function- ADL's Independent Baseline Function- Mobility Independent Baseline Function- Gait no limitations Current Functional Impairments (Reported) Functional Limitations- ADL's painful Functional Limitations- Mobility/Gait antalgic gait, very limited distance Functional Limitations- Work/School retired Functional Limitations- Recreation/ can't take walks Hobbies PT-OP-C Subjective Start: 09/25/24 17:27 Freq: Status: Active Protocol: Document 10/06/24 09:18 AB (Rec: 10/06/24 11:43 AB [id number]) OP-PT Subjective Patient Comments Patient Comments Patient ambulates without device increased hip hike and increased foot slap right LE. Patient rates heel pain ambulating into session without device 2-11/24, 01/24 start of session. 18 deg AROM left ankle DF with knee straight. PT-OP-D Balance Start: 09/25/24 17:27 Freq: Status: Active Protocol: Document 10/01/24 10:39 SAK (Rec: 10/01/24 16:55 SAK [id number]) OP-PT Balance Assessment Standing Balance Standing Balance Comments right 12 sec, left 0 Arvizu Fall Scale Copyright Permission PT-OP-G Mobility & Gait Start: 09/25/24 17:27 Freq: Status: Active Protocol: Document 10/01/24 10:39 SAK (Rec: 10/01/24 16:55 SAK [id number]) OP Mobility Evaluation Transfers Sit to Stand decreased wb left LE OP Gait Assessment Gait Gait Assistance Required: Independent Assistive Devices Assistive Device None Gait Deviations General Gait Pattern Antalgic Stair Climbing Evaluation Evaluation Level of Assist On Stairs Independent Technique/Endurance Stair Climbing Technique Step to Step PT-OP-H Neuro Start: 09/25/24 17:27 Freq: Status: Active Protocol: Document 10/01/24 10:39 SAK (Rec: 10/01/24 16:55 SAK [id number]) Sensation Evaluation Gross Sensation Gross Sensation WNL PT-OP-J Posture/Palpation/Skin Start: 09/25/24 17:27 Freq: Status: Active Protocol: Document 10/01/24 10:39 SAK (Rec: 10/01/24 16:55 SAK [id number]) Posture Evaluation Position Standing Ankle/Foot Posture (L) Supinated Foot Arch (L) High Arch Palpation Assessment Location left foot Palpation Findings Tenderness PT-OP-K Range of Motion Start: 09/25/24 17:27 Freq: Status: Active Protocol: Document 10/01/24 10:39 SAK (Rec: 10/01/24 16:55 SAK [id number]) Ankle and Foot Goniometric Range of Motion Ankle and Foot aris Ankle/Foot ROM WFL Yes PT-OP-M Strength Start: 09/25/24 17:27 Freq: Status: Active Protocol: Document 10/01/24 10:39 SAK (Rec: 10/01/24 16:55 SAK [id number]) Ankle/Foot Strength Ankle and Foot Manual Muscle Testing Left Dorsiflexion (L4) 4 Good Plantarflexion (S1) 4- Good- Inversion 4 Good Eversion (S1) 4 Good Right Dorsiflexion (L4) 5 Normal Plantarflexion (S1) 5 Normal Inversion 5 Normal Eversion (S1) 5 Normal Toe Strength Toe Manual Muscle Testing Left Flexion 4- Good- Extension 4 Good Right Flexion 5 Normal Extension 5 Normal PT-OP-Q Treatments Start: 09/25/24 17:27 Freq: Status: Active Protocol: Document 10/06/24 09:18 AB (Rec: 10/06/24 11:43 AB [id number]) Cardio Equipment Recumbent Stepper (Sci-Fit) Duration (Minutes) 5 Resistance 1.6 Seat Position 11 Therapeutic Exercises Supine Exercises ankle circles Supine Exercise Name HEP review Side bilateral Reps/Minutes CW and CCW X 10 Comments verbal cues ankle ROM with bands Supine Exercise Name PF HEP review Resistance level 2 band Reps/Minutes X10 with Comments VC for set up and to perform slowly ankle AROM Supine Exercise Name DF, PF, eversion, inversion HEP review Side left Reps/Minutes X10 with Comments hooklying and seated Sitting Exercises towel scrunch Sitting Exercise Name HEP review Side bilateral Reps/Minutes 2 min towel on slide board ankle strengthening Sitting Exercise Name DF, inv and ever HEP review Side left Reps/Minutes level one band Comments X10 with 5 second hold Standing Exercises bilateral heel raise Standing Exercise Name with UE support Patient demos exercise she initiated on own at home, Side bilateral Reps/Minutes one minute Comments B HR w/ knees flex to lowering with knees straight, unable to AP WS w/o fl sit to stand Side bilateral Reps/Minutes X6 Comments Pt ed use of self tactile cues for hip hinge, monitored for pain Manual Therapy Treatment Consent Patient gave verbal consent for manual Yes treatment Soft Tissue Mobilization left ankle Body Location calf muscles and ant tib/ peroneals area Mobilization Type Cross-Friction,Myofascial Release,Rolling Intensity/Depth Moderate Body Position Hooklying PT-OP-T Assessment and Plan Start: 09/25/24 17:27 Freq: Status: Active Protocol: Document 10/06/24 09:18 AB (Rec: 10/06/24 11:43 AB [id number]) Physical Therapy Assessment Goals Three Impairment poor balance, unable to stand on left LE [facility] Goal (LTG) 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 Patient also demonstrates Heel raise she is performing on own at home as HR with knees flexed then extending knees and lowering/ patient advised to avoid this at this time and to continue with bands for plantar flexion . Good return demonstration for HEP review, training in using opp LE to hold bands performed this session. Physical Therapy Plan Frequency and Duration Frequency of Treatment 2x/Week Duration of treatment (weeks) 8 Plan of Care Start Date 10/01/24 Plan of Care End Date 11/29/24 Next Visit Focus/Plan Next Note Type Treatment Note Next Visit Plan Start with recumbant elliptical, review HEP, gentle progression of HEP. Consider KT tape. Progess to level 3 band for plantar flexion, possible AP weight shift if able to perform with knees straight, sit to stand revisit /add to HEP.
--- NOTE | 2024-10-14 16:29 | PT.OTN ---
Current Diagnoses Pain in left foot (10/14/24) Difficulty in walking, not elsewhere classified (10/14/24) Other abnormalities of gait and mobility (10/14/24) Weakness (10/14/24) Physical Therapy Treatment Note PT-OP-A Visit Information Start: 09/25/24 17:27 Freq: Status: Active Protocol: Document 10/14/24 10:30 SAK (Rec: 10/14/24 11:32 SAK [id number]) Out-Patient Physical Therapy Visit Information Visit Information Visit Type Treatment Note Visit Start Time 10:44 Visit Stop Time 11:30 Visit Number 2 Number of STATION CAPTAIN Visits 1 Evaluation Information Evaluation Date 10/01/24 Precautions Precautions patient currently undergoing chemo PT-OP-B Current Condition Start: 09/25/24 17:27 Freq: Status: Active Protocol: Document 10/14/24 10:30 SAK (Rec: 10/14/24 11:32 SAK [id number]) Current Condition History of Current Condition Onset Date May 2024 Current Complaints left foot pain History of Current Condition Patient fell through rotten plank in deck, heel stuck, immediate left foot pain. x- ray negative. Went to hospital due to not feeling well about that time and was there for 22 days due to sepsis, no treatement for foot . Reports Left foot atrophied (as well as my bladder muscles, also want to deal with that.) At this time limps majority of the time, can do short distance across the room with min pain if focuses on her gait. Hasn' t used an assistive device recently. Pain varies from minimal to severe.0-9/10. Currently being treated for left chest wound seeing wound care. Current treatment for lymphoma; has 2 more chemo sessions scheduled. Side effects experiencing dizziness . Has lightening bolt pains sometimes in chest previously related to chest wound , now experiences the lightning bolt pain in foot. Difficult to move from sit to stand. Initially used a walker and a walking boot, reports a cane throws off her balance. States pain is random, most often comes at night, during day sensation of rock bruises on left heel. Wears copper compression socks. Prior Treatments and Tests x-ray negative. Treatment Goals Patient/Caregiver Goals Wants to be able to walk without pain. PT-OP-C Subjective Start: 09/25/24 17:27 Freq: Status: Active Protocol: Document 10/14/24 10:30 SAK (Rec: 10/14/24 11:32 SAK [id number]) OP-PT Subjective Patient Comments Patient Comments States she has been walking more up to about 40 blocks but also reports some soreness lateral left LE after increasing her walking. Much difficulty with push off left foot. Chemo affecting her balance, almost done with treatments. Doesn't use a cane because they throw off my balance. PT-OP-D Balance Start: 09/25/24 17:27 Freq: Status: Active Protocol: Document 10/01/24 10:39 SAK (Rec: 10/01/24 16:55 [facility] [id number]) OP-PT Balance Assessment Standing Balance Standing Balance Comments right 12 sec, left 0 Arvizu Fall Scale Copyright Permission PT-OP-G Mobility & Gait Start: 09/25/24 17:27 Freq: Status: Active Protocol: Document 10/01/24 10:39 SAK (Rec: 10/01/24 16:55 [facility] [id number]) OP Mobility Evaluation Transfers Sit to Stand decreased wb left LE OP Gait Assessment Gait Gait Assistance Required: Independent Assistive Devices Assistive Device None Gait Deviations General Gait Pattern Antalgic Stair Climbing Evaluation Evaluation Level of Assist On Stairs Independent Technique/Endurance Stair Climbing Technique Step to Step PT-OP-H Neuro Start: 09/25/24 17:27 Freq: Status: Active Protocol: Document 10/01/24 10:39 SAK (Rec: 10/01/24 16:55 [facility] [id number]) Sensation Evaluation Gross Sensation Gross Sensation WNL PT-OP-J Posture/Palpation/Skin Start: 09/25/24 17:27 Freq: Status: Active Protocol: Document 10/01/24 10:39 SAK (Rec: 10/01/24 16:55 [facility] [id number]) Posture Evaluation Position Standing Ankle/Foot Posture (L) Supinated Foot Arch (L) High Arch Palpation Assessment Location left foot Palpation Findings Tenderness PT-OP-K Range of Motion Start: 09/25/24 17:27 Freq: Status: Active Protocol: Document 10/01/24 10:39 SAK (Rec: 10/01/24 16:55 [facility] [id number]) Ankle and Foot Goniometric Range of Motion Ankle and Foot aris Ankle/Foot ROM WFL Yes PT-OP-M Strength Start: 09/25/24 17:27 Freq: Status: Active Protocol: Document 10/01/24 10:39 [facility] (Rec: 10/01/24 16:55 [facility] [id number]) Ankle/Foot Strength Ankle and Foot Manual Muscle Testing Left Dorsiflexion (L4) 4 Good Plantarflexion (S1) 4- Good- Inversion 4 Good Eversion (S1) 4 Good Right Dorsiflexion (L4) 5 Normal Plantarflexion (S1) 5 Normal Inversion 5 Normal Eversion (S1) 5 Normal Toe Strength Toe Manual Muscle Testing Left Flexion 4- Good- Extension 4 Good Right Flexion 5 Normal Extension 5 Normal PT-OP-Q Treatments Start: 09/25/24 17:27 Freq: Status: Active Protocol: Document 10/14/24 10:30 [facility] (Rec: 10/14/24 11:32 [facility] [id number]) Cardio Equipment Recumbent Stepper (Sci-Fit) Duration (Minutes) 6 Resistance 1.8 Seat Position 11 Therapeutic Exercises Supine Exercises ankle circles Supine Exercise Name verbal review, encouraged alphabet as well ankle ROM with bands Supine Exercise Name PF HEP review Resistance level 2-3 band Reps/Minutes X10 with Comments VC for set up and to perform slowly, issued L3 to progress to. ankle AROM Supine Exercise Name verbal review Sitting Exercises ankle strengthening Sitting Exercise Name DF, inv and ever HEP review Side left Reps/Minutes level 2-3 band Comments X10 with 5 second hold, issued L3 TB to progress to Standing Exercises lateral weight shifts Standing Exercise Name EO and EC Equipment Used bar for UE support Reps/Minutes 20x AP weight shift Standing Exercise Name EO and EC Equipment Used bar for support Reps/Minutes 20x sit to stand Side bilateral Reps/Minutes 10x Comments cues for set-up, equal LE weight-bearing Gait Training Gait Activity 2 Description level Device Used no device Level of Assistance SBA, cues Surface firm Distance/Duration 10ft x 4 Treatment Focus mirror for visual feedback 1 Description level Device Used cane, trekking poles Level of Assistance SBA, cues, Surface firm Distance/Duration 20 ft x 4 Treatment Focus gait sequencing, safety Manual Therapy Treatment Soft Tissue Mobilization left ankle Body Location calf muscles and ant tib/ peroneals area Mobilization Type Cross-Friction,Myofascial Release,Rolling Intensity/Depth Moderate Body Position Hooklying PT-OP-T Assessment and Plan Start: 01/09/25 17:27 Freq: Status: Active Protocol: Document 10/14/24 10:30 [facility] (Rec: 10/14/24 11:32 [facility] [id number]) Physical Therapy Assessment Goals Three Impairment poor balance, unable to stand on left LE Senior Living Goal (LTG) 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 for at least 10 sec as measure of improved balance and decreased pain left LE LTG Duration 11/29/24 Two Impairment antalgic gait, step-to pattern on stairs Short Term Goal (STG) 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 to ambulate with no limp on level surfaces STG Duration 11/01/24 Bobbin Handler Goal (LTG) 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 to ambulate on all surfaces without limp and alternating pattern on stairs LTG Duration 11/29/24 One Impairment weakness left foot and ankle Short Term Goal (STG) Patient to be instructed in HEP for purposes of left ankle and foot strengthenibng STG Duration 11/01/24 Bobbin Handler Goal (LTG) Patient to be independent with HEP and demonstrate improvement in left foot and ankle strength to 5/5 LTG Duration 11/29/24 Assessment Summary Assessment Good tolerance for ther ex progression, less foot slap, but difficulty with push off phase of gait. Updated HEP HO with patient demonstrating good understanding. Gait training with cane and trekking poles with good return demonstration and safety demonstrated with improved gait. Physical Therapy Plan Frequency and Duration Frequency of Treatment 2x/Week Duration of treatment (weeks) 8 Plan of Care Start Date 10/01/24 Plan of Care End Date 11/29/24 Therapeutic Interventions Therapeutic Interventions Gait Training,Home Exercise Program,Manual Therapy, Neuromuscular Re-education, Patient/Caregiver Education, Self-Care/Home Management,Soft Tissue Mobilization,Taping, Therapeutic Activities, Therapeutic Exercises Modalities Cold Pack/Ice Massage,Electric Stimulation,Hot Packs Next Visit Focus/Plan Next Note Type Treatment Note Next Visit Plan Assess response to HO. Consider start with upright bicycle for inc ankle motion. Shuttle balance activities. Continue manual.
--- NOTE | 2024-10-16 12:24 | PT.OTN ---
Current Diagnoses Pain in left foot (10/16/24) Difficulty in walking, not elsewhere classified (10/16/24) Other abnormalities of gait and mobility (10/16/24) Weakness (10/16/24) Physical Therapy Treatment Note PT-OP-A Visit Information Start: 09/25/24 17:27 Freq: Status: Active Protocol: Document 10/16/24 11:33 SAK (Rec: 10/16/24 12:23 [facility] [id number]) Out-Patient Physical Therapy Visit Information Visit Information Visit Type Treatment Note Visit Start Time 11:33 Visit Stop Time 12:24 Visit Number 4 Evaluation Information Evaluation Date 10/01/24 Precautions Precautions patient currently undergoing chemo PT-OP-B Current Condition Start: 09/25/24 17:27 Freq: Status: Active Protocol: Document 10/16/24 11:33 SAK (Rec: 10/16/24 12:23 [facility] [id number]) Current Condition History of Current Condition Onset Date May 2024 Current Complaints left foot pain History of Current Condition Patient fell through rotten plank in deck, heel stuck, immediate left foot pain. x- ray negative. Went to hospital due to not feeling well about that time and was there for 22 days due to sepsis, no treatement for foot . Reports Left foot atrophied (as well as my bladder muscles, also want to deal with that.) At this time limps majority of the time, can do short distance across the room with min pain if focuses on her gait. Hasn' t used an assistive device recently. Pain varies from minimal to severe.0-9/10. Currently being treated for left chest wound seeing wound care. Current treatment for lymphoma; has 2 more chemo sessions scheduled. Side effects experiencing dizziness . Has lightening bolt pains sometimes in chest previously related to chest wound , now experiences the lightning bolt pain in foot. Difficult to move from sit to stand. Initially used a walker and a walking boot, reports a cane throws off her balance. States pain is random, most often comes at night, during day sensation of rock bruises on left heel. Wears copper compression socks. Prior Treatments and Tests x-ray negative. PT-OP-C Subjective Start: 09/25/24 17:27 Freq: Status: Active Protocol: Document 10/16/24 11:33 SAK (Rec: 10/16/24 12:23 SAK [id number]) OP-PT Subjective Patient Comments Patient Comments Sore from PT and from overdoing at home but reports it gave good insight into what muscles need work. Plans to go to [place] running to get fit with good running shoes. Not wearing compression sock today, wanting to wean off of them. PT-OP-D Balance Start: 09/25/24 17:27 Freq: Status: Active Protocol: Document 10/01/24 10:39 SAK (Rec: 10/01/24 16:55 [facility] [id number]) OP-PT Balance Assessment Standing Balance Standing Balance Comments right 12 sec, left 0 Arvizu Fall Scale Copyright Permission PT-OP-G Mobility & Gait Start: 09/25/24 17:27 Freq: Status: Active Protocol: Document 10/01/24 10:39 SAK (Rec: 10/01/24 16:55 [facility] [id number]) OP Mobility Evaluation Transfers Sit to Stand decreased wb left LE OP Gait Assessment Gait Gait Assistance Required: Independent Assistive Devices Assistive Device None Gait Deviations General Gait Pattern Antalgic Stair Climbing Evaluation Evaluation Level of Assist On Stairs Independent Technique/Endurance Stair Climbing Technique Step to Step PT-OP-H Neuro Start: 09/25/24 17:27 Freq: Status: Active Protocol: Document 10/01/24 10:39 SAK (Rec: 10/01/24 16:55 [facility] [id number]) Sensation Evaluation Gross Sensation Gross Sensation WNL PT-OP-J Posture/Palpation/Skin Start: 09/25/24 17:27 Freq: Status: Active Protocol: Document 10/01/24 10:39 SAK (Rec: 10/01/24 16:55 [facility] [id number]) Posture Evaluation Position Standing Ankle/Foot Posture (L) Supinated Foot Arch (L) High Arch Palpation Assessment Location left foot Palpation Findings Tenderness PT-OP-K Range of Motion Start: 09/25/24 17:27 Freq: Status: Active Protocol: Document 10/01/24 10:39 SAK (Rec: 10/01/24 16:55 [facility] [id number]) Ankle and Foot Goniometric Range of Motion Ankle and Foot aris Ankle/Foot ROM WFL Yes PT-OP-M Strength Start: 09/25/24 17:27 Freq: Status: Active Protocol: Document 10/01/24 10:39 SAK (Rec: 10/01/24 16:55 [facility] [id number]) Ankle/Foot Strength Ankle and Foot Manual Muscle Testing Left Dorsiflexion (L4) 4 Good Plantarflexion (S1) 4- Good- Inversion 4 Good Eversion (S1) 4 Good Right Dorsiflexion (L4) 5 Normal Plantarflexion (S1) 5 Normal Inversion 5 Normal Eversion (S1) 5 Normal Toe Strength Toe Manual Muscle Testing Left Flexion 4- Good- Extension 4 Good Right Flexion 5 Normal Extension 5 Normal PT-OP-Q Treatments Start: 09/25/24 17:27 Freq: Status: Active Protocol: Document 10/16/24 11:33 [facility] (Rec: 10/16/24 12:23 [facility] [id number]) Cardio Equipment Recumbent Bicycle Duration (Minutes) 5 Resistance 2 Seat Position 3 Therapeutic Exercises Standing Exercises heel raise Equipment Used EZRA Reps/Minutes 10x gastroc and soleus stretch Reps/Minutes 2x30 Comments left soleus stretch causes pinching anterior ankle lateral weight shifts Standing Exercise Name EO and EC Equipment Used bar for UE support Reps/Minutes 20x AP weight shift Standing Exercise Name EO and EC Equipment Used bar for support Reps/Minutes 20x Manual Therapy Treatment Consent Patient gave verbal consent for manual Yes treatment Soft Tissue Mobilization left LE Mobilization Type Manual Lymphatic Drainage Intensity/Depth light Body Position Hooklying left ankle Body Location calf muscles and ant tib/ peroneals area Mobilization Type Cross-Friction,Myofascial Release,Rolling Intensity/Depth Moderate Body Position Hooklying Neuro Re-Education Treatment Balance Activities foam stand Details EC Equipment black foam Reps/Duration 1 min Comments parallel bars; min UE use Self-Care/Home Management Treatment Education Other Education MLD for LE edema, explained rationale given online resource for reference (Cancer Rehab PT) instructed to resume wearing compression sock PT-OP-R Modalities Start: 09/25/24 17:27 Freq: Status: Active Protocol: Document 10/16/24 11:33 [facility] (Rec: 10/16/24 12:24 [facility] [id number]) Hot Pack/Cold Pack Treatment Cold Pack Location left ankle Patient Position Hooklying Patient Tolerance Good PT-OP-T Assessment and Plan Start: 09/25/24 17:27 Freq: Status: Active Protocol: Document 10/16/24 11:33 [facility] (Rec: 10/16/24 12:23 [facility] [id number]) Physical Therapy Assessment Goals Three Impairment poor balance, unable to stand on left LE Snf Goal (LTG) 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 to engineer design and construction left LE for at least 10 sec as measure of improved balance and decreased pain left LE LTG Duration 11/29/24 Two Impairment antalgic gait, step-to pattern on stairs Short Term Goal (STG) 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 to ambulate with no limp on level surfaces STG Duration 11/01/24 [place] Goal (LTG) 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 to ambulate on all surfaces without limp and alternating pattern on stairs LTG Duration 11/29/24 One Impairment weakness left foot and ankle Short Term Goal (STG) Patient to be instructed in HEP for purposes of left ankle and foot strengthenibng STG Duration 11/01/24 [place]per Goal (LTG) Patient to be independent with HEP and demonstrate improvement in left foot and ankle strength to 5/5 LTG Duration 11/29/24 Assessment Summary Assessment left ankle noted to be swollen today. Provided and instructed in lymphatic massage, encouraged to return to wearing compression socks at this time. Fatigue and increased soreness today, so more manual and pt ed. Physical Therapy Plan Frequency and Duration Frequency of Treatment 2x/Week Duration of treatment (weeks) 8 Plan of Care Start Date 10/01/24 Plan of Care End Date 11/29/24 Therapeutic Interventions Therapeutic Interventions Gait Training,Home Exercise Program,Manual Therapy, Neuromuscular Re-education, Patient/Caregiver Education, Self-Care/Home Management,Soft Tissue Mobilization,Taping, Therapeutic Activities, Therapeutic Exercises Modalities Cold Pack/Ice Massage,Electric Stimulation,Hot Packs Next Visit Focus/Plan Next Note Type Treatment Note Next Visit Plan Consider start with upright bicycle for inc ankle motion. Progress to tiltboard and shuttle balance activities if tolerated. MWM ankle df. Continue manual. Ice PRN.
--- NOTE | 2024-11-05 14:42 | PT.OTN ---
Current Diagnoses Pain in left foot (11/05/24) Difficulty in walking, not elsewhere classified (11/05/24) Other abnormalities of gait and mobility (11/05/24) Weakness (11/05/24) Physical Therapy Treatment Note PT-OP-A Visit Information Start: 09/25/24 17:27 Freq: Status: Active Protocol: Document 11/05/24 14:32 SAK (Rec: 11/05/24 15:16 SAK [id number]) Out-Patient Physical Therapy Visit Information Visit Information Visit Type Treatment Note Visit Start Time 14:30 Visit Stop Time 15:21 Visit Number 6 Number of GENERATION ENGINEERING TECHNOLOGIST Visits 0 Evaluation Information Evaluation Date 10/01/24 Precautions Precautions patient currently undergoing chemo PT-OP-B Current Condition Start: 09/25/24 17:27 Freq: Status: Active Protocol: Document 11/05/24 14:32 SAK (Rec: 11/05/24 15:16 SAK [id number]) Current Condition History of Current Condition Onset Date May 2024 Current Complaints left foot pain History of Current Condition Patient fell through rotten plank in deck, heel stuck, immediate left foot pain. x- ray negative. Went to hospital due to not feeling well about that time and was there for 22 days due to sepsis, no treatement for foot . Reports Left foot atrophied (as well as my bladder muscles, also want to deal with that.) At this time limps majority of the time, can do short distance across the room with min pain if focuses on her gait. Hasn' t used an assistive device recently. Pain varies from minimal to severe.0-9/10. Currently being treated for left chest wound seeing wound care. Current treatment for lymphoma; has 2 more chemo sessions scheduled. Side effects experiencing dizziness . Has lightening bolt pains sometimes in chest previously related to chest wound , now experiences the lightning bolt pain in foot. Difficult to move from sit to stand. Initially used a walker and a walking boot, reports a cane throws off her balance. States pain is random, most often comes at night, during day sensation of rock bruises on left heel. Wears copper compression socks. Prior Treatments and Tests x-ray negative. PT-OP-C Subjective Start: 09/25/24 17:27 Freq: Status: Active Protocol: Document 11/05/24 14:32 SAK (Rec: 11/05/24 15:16 [facility] [id number]) OP-PT Subjective Patient Comments Patient Comments REports massage last time loosened up/released her ankle, still feels like gait is not smooth, her toes don't have attitude. PT helping. Since starting PT pain level has gone down, mobility has gone up about 60% better. Can walk further. PT-OP-D Balance Start: 09/25/24 17:27 Freq: Status: Active Protocol: Document 10/01/24 10:39 [facility] (Rec: 10/01/24 16:55 [facility] [id number]) OP-PT Balance Assessment Standing Balance Standing Balance Comments right 12 sec, left 0 Arvizu Fall Scale Copyright Permission PT-OP-G Mobility & Gait Start: 09/25/24 17:27 Freq: Status: Active Protocol: Document 10/01/24 10:39 [facility] (Rec: 10/01/24 16:55 [facility] [id number]) OP Mobility Evaluation Transfers Sit to Stand decreased wb left LE OP Gait Assessment Gait Gait Assistance Required: Independent Assistive Devices Assistive Device None Gait Deviations General Gait Pattern Antalgic Stair Climbing Evaluation Evaluation Level of Assist On Stairs Independent Technique/Endurance Stair Climbing Technique Step to Step PT-OP-H Neuro Start: 09/25/24 17:27 Freq: Status: Active Protocol: Document 10/01/24 10:39 [facility] (Rec: 10/01/24 16:55 [facility] [id number]) Sensation Evaluation Gross Sensation Gross Sensation WNL PT-OP-J Posture/Palpation/Skin Start: 09/25/24 17:27 Freq: Status: Active Protocol: Document 10/01/24 10:39 [facility] (Rec: 10/01/24 16:55 [facility] [id number]) Posture Evaluation Position Standing Ankle/Foot Posture (L) Supinated Foot Arch (L) High Arch Palpation Assessment Location left foot Palpation Findings Tenderness PT-OP-K Range of Motion Start: 09/25/24 17:27 Freq: Status: Active Protocol: Document 10/01/24 10:39 [facility] (Rec: 10/01/24 16:55 [facility] [id number]) Ankle and Foot Goniometric Range of Motion Ankle and Foot aris Ankle/Foot ROM WFL Yes PT-OP-M Strength Start: 09/25/24 17:27 Freq: Status: Active Protocol: Document 10/01/24 10:39 [facility] (Rec: 10/01/24 16:55 [facility] [id number]) Ankle/Foot Strength Ankle and Foot Manual Muscle Testing Left Dorsiflexion (L4) 4 Good Plantarflexion (S1) 4- Good- Inversion 4 Good Eversion (S1) 4 Good Right Dorsiflexion (L4) 5 Normal Plantarflexion (S1) 5 Normal Inversion 5 Normal Eversion (S1) 5 Normal Toe Strength Toe Manual Muscle Testing Left Flexion 4- Good- Extension 4 Good Right Flexion 5 Normal Extension 5 Normal PT-OP-Q Treatments Start: 09/25/24 17:27 Freq: Status: Active Protocol: Document 11/05/24 14:32 [facility] (Rec: 11/05/24 15:16 [facility] [id number]) Cardio Equipment Recumbent Bicycle Duration (Minutes) 5 Resistance 2 Seat Position 3 Other retro and forward Gym Equipment Shuttle Balance Red Details normal AWILDA, and stagger Comments CGA / visual scanning and head turns for normal AWILDA. Manual Therapy Treatment Consent Patient gave verbal consent for manual Yes treatment Soft Tissue Mobilization left LE Mobilization Type Manual Lymphatic Drainage Intensity/Depth light Body Position Hooklying left ankle Body Location calf muscles and ant tib/ peroneals area Mobilization Type Cross-Friction,Myofascial Release,Rolling Intensity/Depth Moderate Body Position Hooklying Joint Mobilizations MWM TC mob L ankle Grade III Body Position Standing Neuro Re-Education Treatment Balance Activities BOSU Details bal, wt shift Reps/Duration 4 min foam stand Details EC/Romberg Equipment black foam Reps/Duration 1 min Comments parallel bars; min UE use Self-Care/Home Management Treatment Education Patient Education Body Mechanics,Home Exercise Program Other Education foot and toe alignment PT-OP-R Modalities Start: 09/25/24 17:27 Freq: Status: Active Protocol: Document 10/16/24 11:33 [facility] (Rec: 10/16/24 12:24 [facility] [id number]) Hot Pack/Cold Pack Treatment Cold Pack Location left ankle Patient Position Hooklying Patient Tolerance Good PT-OP-T Assessment and Plan Start: 09/25/24 17:27 Freq: Status: Active Protocol: Document 11/05/24 14:32 [facility] (Rec: 11/05/24 15:16 [facility] [id number]) Physical Therapy Assessment Goals Three Impairment poor balance, unable to stand on left LE Intermediate Goal (LTG) 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 to agri business agent left LE for at least 10 sec as measure of improved balance and decreased pain left LE LTG Duration 11/29/24 Two Impairment antalgic gait, step-to pattern on stairs Short Term Goal (STG) 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 to ambulate with no limp on level surfaces STG Duration 11/01/24 Residential Real Estate Sales Manager Goal (LTG) 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 to ambulate on all surfaces without limp and alternating pattern on stairs LTG Duration 11/29/24 One Impairment weakness left foot and ankle Short Term Goal (STG) Patient to be instructed in HEP for purposes of left ankle and foot strengthenibng STG Duration 11/01/24 Residential Real Estate Sales Manager Goal (LTG) Patient to be independent with HEP and demonstrate improvement in left foot and ankle strength to 5/5 LTG Duration 11/29/24 Assessment Summary Assessment Patient benefiting highly from manual treatments, ther ex, patient education. Good progress. Physical Therapy Plan Frequency and Duration Frequency of Treatment 2x/Week Duration of treatment (weeks) 8 Plan of Care Start Date 10/01/24 Plan of Care End Date 11/29/24 Therapeutic Interventions Therapeutic Interventions Gait Training,Home Exercise Program,Manual Therapy, Neuromuscular Re-education, Patient/Caregiver Education, Self-Care/Home Management,Soft Tissue Mobilization,Taping, Therapeutic Activities, Therapeutic Exercises Modalities Cold Pack/Ice Massage,Electric Stimulation,Hot Packs Next Visit Focus/Plan Next Note Type Treatment Note Next Visit Plan Consider start upright bicycle for inc ankle motion. Continue MWM, manual to foot and ankle. trial star slide
--- NOTE | 2024-11-14 10:36 | PT.OTN ---
Current Diagnoses Pain in left foot (11/14/24) Difficulty in walking, not elsewhere classified (11/14/24) Other abnormalities of gait and mobility (11/14/24) Weakness (11/14/24) Physical Therapy Treatment Note PT-OP-A Visit Information Start: 09/25/24 17:27 Freq: Status: Active Protocol: Document 11/14/24 08:10 AB (Rec: 11/14/24 10:36 AB [id number]) Out-Patient Physical Therapy Visit Information Visit Information Visit Type Treatment Note Visit Start Time 08:18 Visit Stop Time 09:02 Visit Number 7 Number of IMPORT/EXPORT AGENT Visits 1 PT-OP-B Current Condition Start: 09/25/24 17:27 Freq: Status: Active Protocol: Document 11/05/24 14:32 SAK (Rec: 11/05/24 15:16 SAK [id number]) Current Condition History of Current Condition Onset Date May 2024 Current Complaints left foot pain History of Current Condition Patient fell through rotten plank in deck, heel stuck, immediate left foot pain. x- ray negative. Went to hospital due to not feeling well about that time and was there for 22 days due to sepsis, no treatement for foot . Reports Left foot atrophied (as well as my bladder muscles, also want to deal with that.) At this time limps majority of the time, can do short distance across the room with min pain if focuses on her gait. Hasn' t used an assistive device recently. Pain varies from minimal to severe.0-9/10. Currently being treated for left chest wound seeing wound care. Current treatment for lymphoma; has 2 more chemo sessions scheduled. Side effects experiencing dizziness . Has lightening bolt pains sometimes in chest previously related to chest wound , now experiences the lightning bolt pain in foot. Difficult to move from sit to stand. Initially used a walker and a walking boot, reports a cane throws off her balance. States pain is random, most often comes at night, during day sensation of rock bruises on left heel. Wears copper compression socks. Prior Treatments and Tests x-ray negative. PT-OP-C Subjective Start: 09/25/24 17:27 Freq: Status: Active Protocol: Document 11/14/24 08:10 AB (Rec: 11/14/24 10:36 AB [id number]) OP-PT Subjective Patient Comments Patient Comments Patient reports she is [place] today, more pain and more unsteady, attributes to decreasing meds (chemo and pain meds.) PT-OP-D Balance Start: 09/25/24 17:27 Freq: Status: Active Protocol: Document 10/01/24 10:39 SAK (Rec: 10/01/24 16:55 SAK [id number]) OP-PT Balance Assessment Standing Balance Standing Balance Comments right 12 sec, left 0 Arvizu Fall Scale Copyright Permission PT-OP-G Mobility & Gait Start: 09/25/24 17:27 Freq: Status: Active Protocol: Document 10/01/24 10:39 SAK (Rec: 10/01/24 16:55 [facility] [id number]) OP Mobility Evaluation Transfers Sit to Stand decreased wb left LE OP Gait Assessment Gait Gait Assistance Required: Independent Assistive Devices Assistive Device None Gait Deviations General Gait Pattern Antalgic Stair Climbing Evaluation Evaluation Level of Assist On Stairs Independent Technique/Endurance Stair Climbing Technique Step to Step PT-OP-H Neuro Start: 09/25/24 17:27 Freq: Status: Active Protocol: Document 10/01/24 10:39 SAK (Rec: 10/01/24 16:55 [facility] [id number]) Sensation Evaluation Gross Sensation Gross Sensation WNL PT-OP-J Posture/Palpation/Skin Start: 09/25/24 17:27 Freq: Status: Active Protocol: Document 10/01/24 10:39 SAK (Rec: 10/01/24 16:55 [facility] [id number]) Posture Evaluation Position Standing Ankle/Foot Posture (L) Supinated Foot Arch (L) High Arch Palpation Assessment Location left foot Palpation Findings Tenderness PT-OP-K Range of Motion Start: 09/25/24 17:27 Freq: Status: Active Protocol: Document 10/01/24 10:39 SAK (Rec: 10/01/24 16:55 [facility] [id number]) Ankle and Foot Goniometric Range of Motion Ankle and Foot aris Ankle/Foot ROM WFL Yes PT-OP-M Strength Start: 09/25/24 17:27 Freq: Status: Active Protocol: Document 10/01/24 10:39 SAK (Rec: 10/01/24 16:55 SAK [id number]) Ankle/Foot Strength Ankle and Foot Manual Muscle Testing Left Dorsiflexion (L4) 4 Good Plantarflexion (S1) 4- Good- Inversion 4 Good Eversion (S1) 4 Good Right Dorsiflexion (L4) 5 Normal Plantarflexion (S1) 5 Normal Inversion 5 Normal Eversion (S1) 5 Normal Toe Strength Toe Manual Muscle Testing Left Flexion 4- Good- Extension 4 Good Right Flexion 5 Normal Extension 5 Normal PT-OP-Q Treatments Start: 09/25/24 17:27 Freq: Status: Active Protocol: Document 11/14/24 08:10 AB (Rec: 11/14/24 10:36 AB [id number]) Cardio Equipment Recumbent Bicycle Duration (Minutes) 5 Resistance 2 Seat Position 3 Other retro and forward Therapeutic Exercises Supine Exercises ankle AROM Supine Exercise Name ankle pumps Reps/Minutes X50 Comments post manual LE's above heart Sitting Exercises Seated hip abd with band Side bilateral Resistance [place] green band Reps/Minutes one min X 1 Comments for glute med activation ankle strengthening Sitting Exercise Name DF Side left Resistance AROM this session Reps/Minutes X 15 with and X15 without band Comments monitored for pain Standing Exercises star ex Side left Reps/Minutes X 3 with UE use X 5 hands above bars Comments verbal and visual cues heel raise Equipment Used EZRA Reps/Minutes 10x knees straight X 10 knees bent gastroc and soleus stretch Reps/Minutes 2x60 Comments On EZRA post manual Manual Therapy Treatment Consent Patient gave verbal consent for manual Yes treatment Soft Tissue Mobilization left ankle Body Location calf muscles and ant tib/ peroneals area Mobilization Type Cross-Friction,Myofascial Release,Rolling Intensity/Depth Moderate Body Position Hooklying Joint Mobilizations MWM TC mob L ankle Direction AP Grade III Body Position Standing Reps/Duration X10 X 3 PT-OP-R Modalities Start: 09/25/24 17:27 Freq: Status: Active Protocol: Document 10/16/24 11:33 SAK (Rec: 10/16/24 12:24 SAK [id number]) Hot Pack/Cold Pack Treatment Cold Pack Location left ankle Patient Position Hooklying Patient Tolerance Good PT-OP-T Assessment and Plan Start: 09/25/24 17:27 Freq: Status: Active Protocol: Document 11/14/24 08:10 AB (Rec: 11/14/24 10:36 AB [id number]) Physical Therapy Assessment Goals Three Impairment poor balance, unable to stand on left LE Longterm Goal (LTG) 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 to lamination assembler left LE for at least 10 sec as measure of improved balance and decreased pain left LE LTG Duration 11/29/24 Two Impairment antalgic gait, step-to pattern on stairs Short Term Goal (STG) 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 to ambulate with no limp on level surfaces STG Duration 11/01/24 Longterm Goal (LTG) 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 to ambulate on all surfaces without limp and alternating pattern on stairs LTG Duration 11/29/24 One Impairment weakness left foot and ankle Short Term Goal (STG) Patient to be instructed in HEP for purposes of left ankle and foot strengthenibng STG Duration 11/01/24 Mechatronics Technician Goal (LTG) Patient to be independent with HEP and demonstrate improvement in left foot and ankle strength to 5/5 LTG Duration 11/29/24 Assessment Summary Assessment Patient reports feeling better than when she came in. Physical Therapy Plan Frequency and Duration Frequency of Treatment 2x/Week Duration of treatment (weeks) 8 Plan of Care Start Date 10/01/24 Plan of Care End Date 11/29/24 Next Visit Focus/Plan Next Note Type Treatment Note Next Visit Plan Consider start upright bicycle for inc ankle motion. Continue MWM, manual to foot and ankle. trial star slide
--- NOTE | 2024-11-20 11:23 | PT.OTN ---
Current Diagnoses Pain in left foot (11/20/24) Difficulty in walking, not elsewhere classified (11/20/24) Other abnormalities of gait and mobility (11/20/24) Weakness (11/20/24) Physical Therapy Treatment Note PT-OP-A Visit Information Start: 09/25/24 17:27 Freq: Status: Active Protocol: Document 11/20/24 08:09 SAK (Rec: 11/20/24 09:02 SAK [id number]) Out-Patient Physical Therapy Visit Information Visit Information Visit Type Treatment Note Visit Start Time 08:15 Visit Stop Time 09:08 Visit Number 8 Number of CARRIER BLOWER Visits 0 Evaluation Information Evaluation Date 10/01/24 Precautions Precautions patient currently undergoing chemo PT-OP-B Current Condition Start: 09/25/24 17:27 Freq: Status: Active Protocol: Document 11/20/24 08:09 SAK (Rec: 11/20/24 09:02 SAK [id number]) Current Condition History of Current Condition Onset Date May 2024 Current Complaints left foot pain History of Current Condition Patient fell through rotten plank in deck, heel stuck, immediate left foot pain. x- ray negative. Went to hospital due to not feeling well about that time and was there for 22 days due to sepsis, no treatement for foot . Reports Left foot atrophied (as well as my bladder muscles, also want to deal with that.) At this time limps majority of the time, can do short distance across the room with min pain if focuses on her gait. Hasn' t used an assistive device recently. Pain varies from minimal to severe.0-9/10. Currently being treated for left chest wound seeing wound care. Current treatment for lymphoma; has 2 more chemo sessions scheduled. Side effects experiencing dizziness . Has lightening bolt pains sometimes in chest previously related to chest wound , now experiences the lightning bolt pain in foot. Difficult to move from sit to stand. Initially used a walker and a walking boot, reports a cane throws off her balance. States pain is random, most often comes at night, during day sensation of rock bruises on left heel. Wears copper compression socks. Prior Treatments and Tests x-ray negative. PT-OP-C Subjective Start: 09/25/24 17:27 Freq: Status: Active Protocol: Document 11/20/24 08:09 SAK (Rec: 11/20/24 09:02 [facility] [id number]) OP-PT Subjective Patient Comments Patient Comments Patient reports today feeling very tight on left side today, wheras a couple days ago she felt she was walking normally and balance was better. FEels off balance today. Has had less of the shooting pain in foot and ankle, mostly compliant to HEP but has sucked the last few days. Has had poor sleep past few days PT-OP-D Balance Start: 09/25/24 17:27 Freq: Status: Active Protocol: Document 10/01/24 10:39 [facility] (Rec: 10/01/24 16:55 [facility] [id number]) OP-PT Balance Assessment Standing Balance Standing Balance Comments right 12 sec, left 0 Arvizu Fall Scale Copyright Permission PT-OP-G Mobility & Gait Start: 09/25/24 17:27 Freq: Status: Active Protocol: Document 10/01/24 10:39 [facility] (Rec: 10/01/24 16:55 [facility] [id number]) OP Mobility Evaluation Transfers Sit to Stand decreased wb left LE OP Gait Assessment Gait Gait Assistance Required: Independent Assistive Devices Assistive Device None Gait Deviations General Gait Pattern Antalgic Stair Climbing Evaluation Evaluation Level of Assist On Stairs Independent Technique/Endurance Stair Climbing Technique Step to Step PT-OP-H Neuro Start: 09/25/24 17:27 Freq: Status: Active Protocol: Document 10/01/24 10:39 [facility] (Rec: 10/01/24 16:55 [facility] [id number]) Sensation Evaluation Gross Sensation Gross Sensation WNL PT-OP-J Posture/Palpation/Skin Start: 09/25/24 17:27 Freq: Status: Active Protocol: Document 10/01/24 10:39 [facility] (Rec: 10/01/24 16:55 [facility] [id number]) Posture Evaluation Position Standing Ankle/Foot Posture (L) Supinated Foot Arch (L) High Arch Palpation Assessment Location left foot Palpation Findings Tenderness PT-OP-K Range of Motion Start: 09/25/24 17:27 Freq: Status: Active Protocol: Document 10/01/24 10:39 [facility] (Rec: 10/01/24 16:55 [facility] [id number]) Ankle and Foot Goniometric Range of Motion Ankle and Foot aris Ankle/Foot ROM WFL Yes PT-OP-M Strength Start: 09/25/24 17:27 Freq: Status: Active Protocol: Document 10/01/24 10:39 [facility] (Rec: 10/01/24 16:55 [facility] [id number]) Ankle/Foot Strength Ankle and Foot Manual Muscle Testing Left Dorsiflexion (L4) 4 Good Plantarflexion (S1) 4- Good- Inversion 4 Good Eversion (S1) 4 Good Right Dorsiflexion (L4) 5 Normal Plantarflexion (S1) 5 Normal Inversion 5 Normal Eversion (S1) 5 Normal Toe Strength Toe Manual Muscle Testing Left Flexion 4- Good- Extension 4 Good Right Flexion 5 Normal Extension 5 Normal PT-OP-Q Treatments Start: 09/25/24 17:27 Freq: Status: Active Protocol: Document 11/20/24 08:09 [facility] (Rec: 11/20/24 09:02 [facility] [id number]) Cardio Equipment Bicycle (Upright) Duration (Minutes) 5 Resistance 5 Seat Position 5 Therapeutic Exercises Sitting Exercises figure 4 stretch Side left Reps/Minutes 30 ankle strengthening Sitting Exercise Name DF Side left Resistance L2 TB, AROM Reps/Minutes 10x with and 10x without band Comments monitored for pain Standing Exercises gastroc and soleus stretch Reps/Minutes 2x60 Comments On EZRA post manual Gait Training Gait Activity 2 Description level Device Used no device Level of Assistance SBA, cues Surface firm Distance/Duration 10ft x 4 Treatment Focus mirror for visual feedback Manual Therapy Treatment Soft Tissue Mobilization left ankle Body Location calf muscles and ant tib/ peroneals area Mobilization Type Cross-Friction,Myofascial Release,Rolling Intensity/Depth Moderate Body Position Hooklying Joint Mobilizations MWM TC mob L ankle Direction AP Grade III Body Position Standing Reps/Duration X10 X 3 Neuro Re-Education Treatment Balance Activities SLS Reps/Duration 4x10 Comments cues for open toes, pressure on all parts of feet tandem standing Details EO, head turns, EC Surface firm Reps/Duration 1 min x 4 PT-OP-R Modalities Start: 09/25/24 17:27 Freq: Status: Active Protocol: Document 11/20/24 08:09 [facility] (Rec: 11/20/24 11:21 [facility] [id number]) Hot Pack/Cold Pack Treatment Cold Pack Location left ankle Patient Position Hooklying Patient Tolerance Good PT-OP-T Assessment and Plan Start: 09/25/24 17:27 Freq: Status: Active Protocol: Document 11/20/24 08:09 GRANT (Rec: 11/20/24 09:02 [facility] [id number]) Physical Therapy Assessment Goals Three Impairment poor balance, unable to stand on left LE Prison Goal (LTG) 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 to dehairing machine tender left LE for at least 10 sec as measure of improved balance and decreased pain left LE LTG Duration 11/29/24 Two Impairment antalgic gait, step-to pattern on stairs Short Term Goal (STG) 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 to ambulate with no limp on level surfaces STG Duration 11/01/24 Prison Goal (LTG) 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 to ambulate on all surfaces without limp and alternating pattern on stairs LTG Duration 11/29/24 One Impairment weakness left foot and ankle Short Term Goal (STG) Patient to be instructed in HEP for purposes of left ankle and foot strengthenibng STG Duration 11/01/24 Prison Goal (LTG) Patient to be independent with HEP and demonstrate improvement in left foot and ankle strength to 5/5 LTG Duration 11/29/24 Assessment Summary Assessment Patient reports good response to MWM, no pinching after technique. Has difficulty with isolated foot movements for TB ex; reviewed need to not move hips, improved after review and performance. Added SLS and tandem stand to HEP. Improved gait after PT. Physical Therapy Plan Frequency and Duration Frequency of Treatment 2x/Week Duration of treatment (weeks) 8 Plan of Care Start Date 10/01/24 Plan of Care End Date 11/29/24 Therapeutic Interventions Therapeutic Interventions Gait Training,Home Exercise Program,Manual Therapy, Neuromuscular Re-education, Patient/Caregiver Education, Self-Care/Home Management,Soft Tissue Mobilization,Taping, Therapeutic Activities, Therapeutic Exercises Modalities Cold Pack/Ice Massage,Electric Stimulation,Hot Packs Next Visit Focus/Plan Next Note Type Progress Note Next Visit Plan Continue start upright bicycle with emphasis circular motion , MWM and other manual techniques. Star slide, balance and gait training.
--- NOTE | 2024-11-28 10:42 | PT.OTN ---
Current Diagnoses Pain in left foot (11/28/24) Difficulty in walking, not elsewhere classified (11/28/24) Other abnormalities of gait and mobility (11/28/24) Weakness (11/28/24) Physical Therapy Treatment Note PT-OP-A Visit Information Start: 09/25/24 17:27 Freq: Status: Active Protocol: Document 11/28/24 08:07 AB (Rec: 11/28/24 10:42 AB [id number]) Out-Patient Physical Therapy Visit Information Visit Information Visit Type Treatment Note Visit Start Time 08:18 Visit Stop Time 09:02 Visit Number 9 Number of BOBBIN COLLECTOR Visits 1 Evaluation Information Evaluation Date 10/01/24 Precautions Precautions patient currently undergoing chemo PT-OP-B Current Condition Start: 09/25/24 17:27 Freq: Status: Active Protocol: Document 11/20/24 08:09 SAK (Rec: 11/20/24 09:02 SAK [id number]) Current Condition History of Current Condition Onset Date May 2024 Current Complaints left foot pain History of Current Condition Patient fell through rotten plank in deck, heel stuck, immediate left foot pain. x- ray negative. Went to hospital due to not feeling well about that time and was there for 22 days due to sepsis, no treatement for foot . Reports Left foot atrophied (as well as my bladder muscles, also want to deal with that.) At this time limps majority of the time, can do short distance across the room with min pain if focuses on her gait. Hasn' t used an assistive device recently. Pain varies from minimal to severe.0-9/10. Currently being treated for left chest wound seeing wound care. Current treatment for lymphoma; has 2 more chemo sessions scheduled. Side effects experiencing dizziness . Has lightening bolt pains sometimes in chest previously related to chest wound , now experiences the lightning bolt pain in foot. Difficult to move from sit to stand. Initially used a walker and a walking boot, reports a cane throws off her balance. States pain is random, most often comes at night, during day sensation of rock bruises on left heel. Wears copper compression socks. Prior Treatments and Tests x-ray negative. PT-OP-C Subjective Start: 09/25/24 17:27 Freq: Status: Active Protocol: Document 11/28/24 08:07 AB (Rec: 11/28/24 10:42 [id number]) OP-PT Subjective Patient Comments Patient Comments Patient reports she is better, and performs a small dance ambulating into session. Patient reports continued tightness L ankle bone and front of ankle, also reports knee continues to be affected, has to ascend and descend stairs sideways. Patient reports toes are not moving when ascending and descending stairs. PT-OP-D Balance Start: 09/25/24 17:27 Freq: Status: Active Protocol: Document 10/01/24 10:39 SAK (Rec: 10/01/24 16:55 [facility] [id number]) OP-PT Balance Assessment Standing Balance Standing Balance Comments right 12 sec, left 0 Arvizu Fall Scale Copyright Permission PT-OP-G Mobility & Gait Start: 09/25/24 17:27 Freq: Status: Active Protocol: Document 10/01/24 10:39 SAK (Rec: 10/01/24 16:55 [facility] [id number]) OP Mobility Evaluation Transfers Sit to Stand decreased wb left LE OP Gait Assessment Gait Gait Assistance Required: Independent Assistive Devices Assistive Device None Gait Deviations General Gait Pattern Antalgic Stair Climbing Evaluation Evaluation Level of Assist On Stairs Independent Technique/Endurance Stair Climbing Technique Step to Step PT-OP-H Neuro Start: 09/25/24 17:27 Freq: Status: Active Protocol: Document 10/01/24 10:39 SAK (Rec: 10/01/24 16:55 [facility] [id number]) Sensation Evaluation Gross Sensation Gross Sensation WNL PT-OP-J Posture/Palpation/Skin Start: 09/25/24 17:27 Freq: Status: Active Protocol: Document 10/01/24 10:39 SAK (Rec: 10/01/24 16:55 [facility] [id number]) Posture Evaluation Position Standing Ankle/Foot Posture (L) Supinated Foot Arch (L) High Arch Palpation Assessment Location left foot Palpation Findings Tenderness PT-OP-K Range of Motion Start: 09/25/24 17:27 Freq: Status: Active Protocol: Document 10/01/24 10:39 SAK (Rec: 10/01/24 16:55 [facility] [id number]) Ankle and Foot Goniometric Range of Motion Ankle and Foot aris Ankle/Foot ROM WFL Yes PT-OP-M Strength Start: 09/25/24 17:27 Freq: Status: Active Protocol: Document 10/01/24 10:39 [facility] (Rec: 10/01/24 16:55 [facility] [id number]) Ankle/Foot Strength Ankle and Foot Manual Muscle Testing Left Dorsiflexion (L4) 4 Good Plantarflexion (S1) 4- Good- Inversion 4 Good Eversion (S1) 4 Good Right Dorsiflexion (L4) 5 Normal Plantarflexion (S1) 5 Normal Inversion 5 Normal Eversion (S1) 5 Normal Toe Strength Toe Manual Muscle Testing Left Flexion 4- Good- Extension 4 Good Right Flexion 5 Normal Extension 5 Normal PT-OP-Q Treatments Start: 09/25/24 17:27 Freq: Status: Active Protocol: Document 11/28/24 08:07 AB (Rec: 11/28/24 10:42 AB [id number]) Cardio Equipment Bicycle (Upright) Duration (Minutes) 5 Resistance 2 to 5 Seat Position 5 Therapeutic Exercises Supine Exercises ankle AROM Supine Exercise Name ankle pumps Reps/Minutes X26 Comments post manual LE's above heart Sitting Exercises Seated hip abd with band Side bilateral Resistance [place] band Reps/Minutes one min X 1 Comments for glute med activation towel scrunch Sitting Exercise Name HEP review Side bilateral Reps/Minutes 2 min towel on slide board ankle strengthening Sitting Exercise Name DF Side left Resistance L2 TB, AROM Reps/Minutes 10x with and 10x without band Comments monitored for pain Standing Exercises gastroc and soleus stretch Reps/Minutes 2x60 Comments On EZRA post manual sit to stand Side bilateral Equipment Used HEP Reps/Minutes X4 and X 6 and X 3 1/2 to chair Comments cues for set-up, equal LE weight-bearing Manual Therapy Treatment Consent Patient gave verbal consent for manual Yes treatment Soft Tissue Mobilization left ankle Body Location calf muscles and ant tib/ peroneals area Mobilization Type Cross-Friction,Myofascial Release,Rolling Intensity/Depth Moderate Body Position Hooklying Joint Mobilizations MWM TC mob L ankle Direction AP Grade III Body Position Standing Reps/Duration X10 X 3 PT-OP-R Modalities Start: 09/25/24 17:27 Freq: Status: Active Protocol: Document 11/20/24 08:09 SAK (Rec: 11/20/24 11:21 SAK [id number]) Hot Pack/Cold Pack Treatment Cold Pack Location left ankle Patient Position Hooklying Patient Tolerance Good PT-OP-T Assessment and Plan Start: 09/25/24 17:27 Freq: Status: Active Protocol: Document 11/28/24 08:07 AB (Rec: 11/28/24 10:42 AB [id number]) Physical Therapy Assessment Goals Three Impairment poor balance, unable to stand on left LE [employer] Goal (LTG) 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 to landing worker left LE for at least 10 sec as measure of improved balance and decreased pain left LE LTG Duration 11/29/24 Two Impairment antalgic gait, step-to pattern on stairs Short Term Goal (STG) 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 to ambulate with no limp on level surfaces STG Duration 11/01/24 [employer] Goal (LTG) 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 to ambulate on all surfaces without limp and alternating pattern on stairs LTG Duration 11/29/24 One Impairment weakness left foot and ankle Short Term Goal (STG) Patient to be instructed in HEP for purposes of left ankle and foot strengthenibng STG Duration 11/01/24 Fdc Goal (LTG) Patient to be independent with HEP and demonstrate improvement in left foot and ankle strength to 5/5 LTG Duration 11/29/24 Assessment Summary Assessment Patient reports feeling better than when she came in, rates L knee pain 2/10. 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 to perform sit to stand with out UE use with improved hip hinge post training. Physical Therapy Plan Frequency and Duration Frequency of Treatment 2x/Week Duration of treatment (weeks) 8 Plan of Care Start Date 10/01/24 Plan of Care End Date 11/29/24 Next Visit Focus/Plan Next Note Type Treatment Note Next Visit Plan Continue start upright bicycle with emphasis circular motion , MWM and other manual techniques. Star slide, balance and gait training.
--- NOTE | 2024-12-03 15:13 | PT-OP ANOTE ---
cancelled due to pulled a rib.
--- NOTE | 2024-12-11 16:30 | PT.OTRE ---
Current Diagnoses Pain in left foot (12/11/24) Difficulty in walking, not elsewhere classified (12/11/24) Other abnormalities of gait and mobility (12/11/24) Weakness (12/11/24) Past Medical History (Last Updated 05/10/24 @ 18:05 by Lorenza Del Rosario) Broken foot (~1969) Chicken pox Depression Measles Migraines Mumps Rosacea (~1989) Visit Care Team Role Provider Type Regine Prakash MD Attending Provider Physician Family Provider Primary Care Provider Referring Provider Specialty: Family Practice SECURITY SERGEANT Address: [address] [place] [address], [facility] Email: [email or web address] Physical Therapy Re-Evaluation PT-OP-A Visit Information Start: 09/25/24 17:27 Freq: Status: Active Protocol: Document 12/11/24 11:33 SAK (Rec: 12/11/24 12:24 SAK [id number]) Out-Patient Physical Therapy Visit Information Visit Information Visit Type Treatment Note Visit Start Time 11:31 Visit Stop Time 12:25 Visit Number 10 Number of DIGITAL MEDIA BUYER Visits 0 Evaluation Information Evaluation Date 10/01/24 Precautions Precautions patient currently undergoing chemo PT-OP-B Current Condition Start: 09/25/24 17:27 Freq: Status: Active Protocol: Document 12/11/24 11:33 SAK (Rec: 12/11/24 12:24 SAK [id number]) Current Condition History of Current Condition Onset Date May 2024 Current Complaints left foot pain History of Current Condition Patient fell through rotten plank in deck, heel stuck, immediate left foot pain. x- ray negative. Went to hospital due to not feeling well about that time and was there for 22 days due to sepsis, no treatement for foot . Reports Left foot atrophied (as well as my bladder muscles, also want to deal with that.) At this time limps majority of the time, can do short distance across the room with min pain if focuses on her gait. Hasn' t used an assistive device recently. Pain varies from minimal to severe.0-9/10. Currently being treated for left chest wound seeing wound care. Current treatment for lymphoma; has 2 more chemo sessions scheduled. Side effects experiencing dizziness . Has lightening bolt pains sometimes in chest previously related to chest wound , now experiences the lightning bolt pain in foot. Difficult to move from sit to stand. Initially used a walker and a walking boot, reports a cane throws off her balance. States pain is random, most often comes at night, during day sensation of rock bruises on left heel. Wears copper compression socks. Prior Treatments and Tests x-ray negative. Treatment Goals Patient/Caregiver Goals Wants to be able to walk without pain. PT-OP-C Subjective Start: 09/25/24 17:27 Freq: Status: Active Protocol: Document 12/11/24 11:33 SAK (Rec: 12/11/24 12:24 SAK [id number]) OP-PT Subjective Patient Comments Patient Comments stumbled in kitchen, pulled rib, has seen chiropractor x 2 , better, but still some bothersome. The big thing is not being able to descend stairs, doesn't have ankle motion, pinchy in the front/ outer ankle Patient Reported Progress Improving PT-OP-D Balance Start: 09/25/24 17:27 Freq: Status: Active Protocol: Document 10/01/24 10:39 SAK (Rec: 10/01/24 16:55 SAK [id number]) OP-PT Balance Assessment Standing Balance Standing Balance Comments right 12 sec, left 0 Arvizu Fall Scale Copyright Permission Luh JM, Luh RM, Alida SJ. Development of a scale to identify the fall- prone patient. Can J Aging 1989;8;366-7. Bob Arvizu (2009). Preventing patient falls. (2nd ed). [place]: [place]. PT-OP-G Mobility & Gait Start: 09/25/24 17:27 Freq: Status: Active Protocol: Document 10/01/24 10:39 SAK (Rec: 10/01/24 16:55 SAK [id number]) OP Mobility Evaluation Transfers Sit to Stand decreased wb left LE OP Gait Assessment Gait Gait Assistance Required: Independent Assistive Devices Assistive Device None Gait Deviations General Gait Pattern Antalgic Stair Climbing Evaluation Evaluation Level of Assist On Stairs Independent Technique/Endurance Stair Climbing Technique Step to Step PT-OP-H Neuro Start: 09/25/24 17:27 Freq: Status: Active Protocol: Document 10/01/24 10:39 SAK (Rec: 10/01/24 16:55 [facility] [id number]) Sensation Evaluation Gross Sensation Gross Sensation WNL PT-OP-J Posture/Palpation/Skin Start: 09/25/24 17:27 Freq: Status: Active Protocol: Document 10/01/24 10:39 [facility] (Rec: 10/01/24 16:55 [facility] [id number]) Posture Evaluation Position Standing Ankle/Foot Posture (L) Supinated Foot Arch (L) High Arch Palpation Assessment Location left foot Palpation Findings Tenderness PT-OP-K Range of Motion Start: 09/25/24 17:27 Freq: Status: Active Protocol: Document 10/01/24 10:39 [facility] (Rec: 10/01/24 16:55 [facility] [id number]) Ankle and Foot Goniometric Range of Motion Ankle and Foot Measured in Degrees aris Ankle/Foot ROM WFL Yes PT-OP-M Strength Start: 09/25/24 17:27 Freq: Status: Active Protocol: Document 10/01/24 10:39 [facility] (Rec: 10/01/24 16:55 [facility] [id number]) Ankle/Foot Strength Ankle and Foot Manual Muscle Testing Left Dorsiflexion (L4) 4 Good Plantarflexion (S1) 4- Good- Inversion 4 Good Eversion (S1) 4 Good Right Dorsiflexion (L4) 5 Normal Plantarflexion (S1) 5 Normal Inversion 5 Normal Eversion (S1) 5 Normal Toe Strength Toe Manual Muscle Testing Left Flexion 4- Good- Extension 4 Good Right Flexion 5 Normal Extension 5 Normal PT-OP-Q Treatments Start: 09/25/24 17:27 Freq: Status: Active Protocol: Document 12/11/24 11:33 [facility] (Rec: 12/11/24 12:24 [facility] [id number]) Therapeutic Exercises Supine Exercises ankle ROM with bands Supine Exercise Name resisted df,inv,ev Resistance level 2 band Reps/Minutes X10 Comments manual cues to isolate movement to ankle, challenged with inv and ev Standing Exercises stair lunge Equipment Used 6 stairs (2nd stair) Comments heel down, able to achieve full motion, no anterior pinching gastroc and soleus stretch Reps/Minutes 2x60 Comments On EZRA Manual Therapy Treatment Soft Tissue Mobilization left ankle Body Location ankle Mobilization Type Manual Lymphatic Drainage Intensity/Depth Moderate Body Position Hooklying Joint Mobilizations subtalar Direction distraction and post glide Grade III Body Position long sit Reps/Duration 10x2 MWM TC mob L ankle Direction AP Grade III Body Position Standing Reps/Duration X10 X 2 PT-OP-R Modalities Start: 09/25/24 17:27 Freq: Status: Active Protocol: Document 12/11/24 11:33 [facility] (Rec: 12/11/24 13:06 [facility] [id number]) Hot Pack/Cold Pack Treatment Cold Pack Location left ankle Patient Position Hooklying Patient Tolerance Good PT-OP-T Assessment and Plan Start: 09/25/24 17:27 Freq: Status: Active Protocol: Document 12/11/24 11:33 [facility] (Rec: 12/11/24 12:24 [facility] [id number]) Physical Therapy Assessment Goals Three Impairment poor balance, unable to stand on left LE Fci Goal (LTG) 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 to firearms inspector left LE for at least 10 sec as measure of improved balance and decreased pain left LE 12/11/24:Improved, can stand on left leg but needs UE support , goal progress LTG Duration 01/29/25 Two Impairment antalgic gait, step-to pattern on stairs Short Term Goal (STG) 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 to ambulate with no limp on level surfaces 12/11/24: goal met STG Duration goal met Floor Press Operator Goal (LTG) 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 to ambulate on all surfaces without limp and alternating pattern on stairs 12/11/24: can ascend stairs alternating pattern , but step -to pattern descending stairs due to pinching pain ant/ lateral left ankle. Needs UE support descending LTG Duration 01/29/25 One Impairment weakness left foot and ankle Short Term Goal (STG) Patient to be instructed in HEP for purposes of left ankle and foot strengthening 12/11/24: goal met STG Duration goal met Floor Press Operator Goal (LTG) Patient to be independent with HEP and demonstrate improvement in left foot and ankle strength to 01/1912/11/24: strength left ankle df 4+/5, pf 4/5, inv 4-/5, ev 3+/5. LTG Duration 11/29/24 Assessment Summary Assessment Patient has made good progress but major remaining difficulty is some persistent weakness in ankle as well as inability to descend stairs with alternating pattern due to anterior/lateral ankle pinching. With full weight bearing patient unable to achieve full ROM required but with only partial weight- bearing can achieve pain-free full ankle motion. Needs further strengtheing (HEP and correct performance theraband exercises reviewed today ) and manual techniques to ankle for ankle support and improved joint biomechanics to allow alternating pattern descending stairs. Discussed POC and patient in agreement. Physical Therapy Plan Frequency and Duration Frequency of Treatment 2x/Week Duration of treatment (weeks) 6 Plan of Care Start Date 11/29/24 Plan of Care End Date 01/25/25 Therapeutic Interventions Therapeutic Interventions Gait Training,Home Exercise Program,Manual Therapy, Neuromuscular Re-education, Patient/Caregiver Education, Self-Care/Home Management,Soft Tissue Mobilization,Taping, Therapeutic Activities, Therapeutic Exercises Modalities Cold Pack/Ice Massage,Electric Stimulation,Hot Packs Next Visit Focus/Plan Next Note Type Treatment Note Next Visit Plan Continue start upright bicycle with emphasis circular motion , MWM and other manual techniques. Ankle strengthening, Star slide, balance and gait training.
--- NOTE | 2024-12-11 16:31 | PT.OPPOC ---
Physical, Occupational & Speech Therapy At [facility] Current Diagnoses Pain in left foot (12/11/24) Difficulty in walking, not elsewhere classified (12/11/24) Other abnormalities of gait and mobility (12/11/24) Weakness (12/11/24) Visit Care Team Role Provider Type Regine Prakash MD Attending Provider Physician Family Provider Primary Care Provider Referring Provider Specialty: Family Practice MEN'S FURNISHINGS SALESPERSON Address: [facility] [place], [address] Email: [email or web address] Plan Of Care PT-OP-B Current Condition Start: 09/25/24 17:27 Freq: Status: Active Protocol: Document 12/11/24 11:33 SAK (Rec: 12/11/24 12:24 SAK [id number]) Current Condition History of Current Condition Onset Date May 2024 Current Complaints left foot pain History of Current Condition Patient fell through rotten plank in deck, heel stuck, immediate left foot pain. x- ray negative. Went to hospital due to not feeling well about that time and was there for 22 days due to sepsis, no treatement for foot . Reports Left foot atrophied (as well as my bladder muscles, also want to deal with that.) At this time limps majority of the time, can do short distance across the room with min pain if focuses on her gait. Hasn' t used an assistive device recently. Pain varies from minimal to severe.0-9/10. Currently being treated for left chest wound seeing wound care. Current treatment for lymphoma; has 2 more chemo sessions scheduled. Side effects experiencing dizziness . Has lightening bolt pains sometimes in chest previously related to chest wound , now experiences the lightning bolt pain in foot. Difficult to move from sit to stand. Initially used a walker and a walking boot, reports a cane throws off her balance. States pain is random, most often comes at night, during day sensation of rock bruises on left heel. Wears copper compression socks. Prior Treatments and Tests x-ray negative. Treatment Goals Patient/Caregiver Goals Wants to be able to walk without pain. PT-OP-T Assessment and Plan Start: 09/25/24 17:27 Freq: Status: Active Protocol: Document 12/11/24 11:33 [facility] (Rec: 12/11/24 12:24 [facility] [id number]) Physical Therapy Assessment Goals Three Impairment poor balance, unable to stand on left LE Custodial Goal (LTG) 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 to fabric inspector left LE for at least 10 sec as measure of improved balance and decreased pain left LE 12/11/24:Improved, can stand on left leg but needs UE support , goal progress LTG Duration 01/29/25 Two Impairment antalgic gait, step-to pattern on stairs Short Term Goal (STG) 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 to ambulate with no limp on level surfaces 12/11/24: goal met STG Duration goal met Custodial Goal (LTG) 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 to ambulate on all surfaces without limp and alternating pattern on stairs 12/11/24: can ascend stairs alternating pattern , but step -to pattern descending stairs due to pinching pain ant/ lateral left ankle. Needs UE support descending LTG Duration 01/29/25 One Impairment weakness left foot and ankle Short Term Goal (STG) Patient to be instructed in HEP for purposes of left ankle and foot strengthening 12/11/24: goal met STG Duration goal met Terminal Worker Goal (LTG) Patient to be independent with HEP and demonstrate improvement in left foot and ankle strength to 5/12/11/24: strength left ankle df 4+/5, pf 4/5, inv 4-/5, ev 3+/5. LTG Duration 11/29/24 Assessment Summary Assessment Patient has made good progress but major remaining difficulty is some persistent weakness in ankle as well as inability to descend stairs with alternating pattern due to anterior/lateral ankle pinching. With full weight bearing patient unable to achieve full ROM required but with only partial weight- bearing can achieve pain-free full ankle motion. Needs further strengtheing (HEP and correct performance theraband exercises reviewed today ) and manual techniques to ankle for ankle support and improved joint biomechanics to allow alternating pattern descending stairs. Discussed POC and patient in agreement. Physical Therapy Plan Frequency and Duration Frequency of Treatment 2x/Week Duration of treatment (weeks) 6 Plan of Care Start Date 11/29/24 Plan of Care End Date 01/25/25 Therapeutic Interventions Therapeutic Interventions Gait Training,Home Exercise Program,Manual Therapy, Neuromuscular Re-education, Patient/Caregiver Education, Self-Care/Home Management,Soft Tissue Mobilization,Taping, Therapeutic Activities, Therapeutic Exercises Modalities Cold Pack/Ice Massage,Electric Stimulation,Hot Packs Next Visit Focus/Plan Next Note Type Treatment Note Next Visit Plan Continue start upright bicycle with emphasis circular motion , MWM and other manual techniques. Ankle strengthening, Star slide, balance and gait training. Plan of Care Dates Plan of Care Start Date 11/29/24 Plan of Care End Date 01/25/25 Electronically Signed by: Jennifer Beltran, PT 12/11/24 [id number] If you are in agreement with this Plan of Care, please return a signed and dated copy. I have reviewed this Plan of Care and certify that the skilled therapy services above are required to meet the patient?s needs. Physician Signature Date Printed Name and Credentials Clinical Instructor Signature Printed Name and Credentials
--- NOTE | 2024-12-17 09:10 | PT.OTN ---
Current Diagnoses Pain in left foot (12/17/24) Difficulty in walking, not elsewhere classified (12/17/24) Other abnormalities of gait and mobility (12/17/24) Weakness (12/17/24) Physical Therapy Treatment Note PT-OP-A Visit Information Start: 09/25/24 17:27 Freq: Status: Active Protocol: Document 12/17/24 08:14 SAK (Rec: 12/17/24 09:10 [facility] [id number]) Out-Patient Physical Therapy Visit Information Visit Information Visit Type Treatment Note Visit Start Time 08:14 Visit Stop Time 09:00 Visit Number 11 Number of STERILE PROCESS TECH Visits 0 Evaluation Information Evaluation Date 10/01/24 PT-OP-B Current Condition Start: 09/25/24 17:27 Freq: Status: Active Protocol: Document 12/17/24 08:14 SAK (Rec: 12/17/24 09:10 [facility] [id number]) Current Condition History of Current Condition Onset Date May 2024 Current Complaints left foot pain History of Current Condition Patient fell through rotten plank in deck, heel stuck, immediate left foot pain. x- ray negative. Went to hospital due to not feeling well about that time and was there for 22 days due to sepsis, no treatement for foot . Reports Left foot atrophied (as well as my bladder muscles, also want to deal with that.) At this time limps majority of the time, can do short distance across the room with min pain if focuses on her gait. Hasn' t used an assistive device recently. Pain varies from minimal to severe.0-9/10. Currently being treated for left chest wound seeing wound care. Current treatment for lymphoma; has 2 more chemo sessions scheduled. Side effects experiencing dizziness . Has lightening bolt pains sometimes in chest previously related to chest wound , now experiences the lightning bolt pain in foot. Difficult to move from sit to stand. Initially used a walker and a walking boot, reports a cane throws off her balance. States pain is random, most often comes at night, during day sensation of rock bruises on left heel. Wears copper compression socks. Prior Treatments and Tests x-ray negative. 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 Was in and out of truck. PT-OP-D Balance Start: 09/25/24 17:27 Freq: Status: Active Protocol: Document 10/01/24 10:39 SAK (Rec: 10/01/24 16:55 [facility] [id number]) OP-PT Balance Assessment Standing Balance Standing Balance Comments right 12 sec, left 0 Arvizu Fall Scale Copyright Permission PT-OP-G Mobility & Gait Start: 09/25/24 17:27 Freq: Status: Active Protocol: Document 10/01/24 10:39 SAK (Rec: 10/01/24 16:55 [facility] [id number]) OP Mobility Evaluation Transfers Sit to Stand decreased wb left LE OP Gait Assessment Gait Gait Assistance Required: Independent Assistive Devices Assistive Device None Gait Deviations General Gait Pattern Antalgic Stair Climbing Evaluation Evaluation Level of Assist On Stairs Independent Technique/Endurance Stair Climbing Technique Step to Step PT-OP-H Neuro Start: 09/25/24 17:27 Freq: Status: Active Protocol: Document 10/01/24 10:39 SAK (Rec: 10/01/24 16:55 [facility] [id number]) Sensation Evaluation Gross Sensation Gross Sensation WNL PT-OP-J Posture/Palpation/Skin Start: 09/25/24 17:27 Freq: Status: Active Protocol: Document 10/01/24 10:39 SAK (Rec: 10/01/24 16:55 [facility] [id number]) Posture Evaluation Position Standing Ankle/Foot Posture (L) Supinated Foot Arch (L) High Arch Palpation Assessment Location left foot Palpation Findings Tenderness PT-OP-K Range of Motion Start: 09/25/24 17:27 Freq: Status: Active Protocol: Document 10/01/24 10:39 SAK (Rec: 10/01/24 16:55 [facility] [id number]) Ankle and Foot Goniometric Range of Motion Ankle and Foot aris Ankle/Foot ROM WFL Yes PT-OP-M Strength Start: 09/25/24 17:27 Freq: Status: Active Protocol: Document 10/01/24 10:39 SAK (Rec: 10/01/24 16:55 [facility] [id number]) Ankle/Foot Strength Ankle and Foot Manual Muscle Testing Left Dorsiflexion (L4) 4 Good Plantarflexion (S1) 4- Good- Inversion 4 Good Eversion (S1) 4 Good Right Dorsiflexion (L4) 5 Normal Plantarflexion (S1) 5 Normal Inversion 5 Normal Eversion (S1) 5 Normal Toe Strength Toe Manual Muscle Testing Left Flexion 4- Good- Extension 4 Good Right Flexion 5 Normal Extension 5 Normal PT-OP-Q Treatments Start: 09/25/24 17:27 Freq: Status: Active Protocol: Document 12/17/24 08:14 [facility] (Rec: 12/17/24 09:10 [facility] [id number]) Cardio Equipment Elliptical Duration (Minutes) 4 Resistance 1 Other cues for LE alignment Gym Equipment Shuttle Balance Red Details stagger; bal and wt shift, side to side bal and wt shift Therapeutic Exercises Standing Exercises tibialis ant stretch Reps/Minutes 2x30 stair lunge Equipment Used 6 stairs (2nd stair)x 10 Comments heel down, able to achieve full motion, no anterior pinching heel raise Equipment Used EZRA Reps/Minutes 10x knees straight X 10 knees bent Comments cues for increased work to left LE gastroc and soleus stretch Reps/Minutes 2x60 Comments On EZRA, then on stairs hallway bilateral heel raise Standing Exercise Name with UE support Patient demos exercise she initiated on own at home, Side bilateral Reps/Minutes one minute Comments B HR w/ knees flex to lowering with knees straight, unable to AP WS w/o fl Gait Training Gait Activity 2 Description stairs Device Used 1 rail Level of Assistance SBA, cues Surface 4 stairs Distance/Duration 20 stairs ascend and descend Manual Therapy Treatment Joint Mobilizations subtalar Direction distraction and post glide Grade III Body Position long sit Reps/Duration 10x2 Neuro Re-Education Treatment Balance Activities BOSU Details bal, wt shift Reps/Duration 4 min PT-OP-R Modalities Start: 09/25/24 17:27 Freq: Status: Active Protocol: Document 12/17/24 08:14 [facility] (Rec: 12/17/24 09:10 [facility] [id number]) Hot Pack/Cold Pack Treatment Cold Pack Comments held per patient request; to ice at home PT-OP-T Assessment and Plan Start: 09/25/24 17:27 Freq: Status: Active Protocol: Document 12/17/24 08:14 [facility] (Rec: 12/17/24 09:10 [facility] [id number]) Physical Therapy Assessment Goals Three Impairment poor balance, unable to stand on left LE Coal Drier Operator Goal (LTG) 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 to guide dog trainer left LE for at least 10 sec as measure of improved balance and decreased pain left LE 12/11/24:Improved, can stand on left leg but needs UE support , goal progress LTG Duration 01/29/25 Two Impairment antalgic gait, step-to pattern on stairs Short Term Goal (STG) 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 to ambulate with no limp on level surfaces 12/11/24: goal met STG Duration goal met [facility]dc Goal (LTG) 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 to ambulate on all surfaces without limp and alternating pattern on stairs 12/11/24: can ascend stairs alternating pattern , but step -to pattern descending stairs due to pinching pain ant/ lateral left ankle. Needs UE support descending LTG Duration 01/29/25 One Impairment weakness left foot and ankle Short Term Goal (STG) Patient to be instructed in HEP for purposes of left ankle and foot strengthening 12/11/24: goal met STG Duration goal met Coal Drier Operator Goal (LTG) Patient to be independent with HEP and demonstrate improvement in left foot and ankle strength to 5/12/11/24: strength left ankle df 4+/5, pf 4/5, inv 4-/5, ev 3+/5. LTG Duration 11/29/24 Assessment Summary Assessment Focused on functional, closed chain strengthening and flexibility, then manual to ankle followed by gait training on stairs. Most difficulty with stairs today was eccentric control as steps down onto stair. Heel raise accomplished mostly with right ; cues to gradually shift inc work to left. Antalgic gait due to heel pain from activity on Sunday. Physical Therapy Plan Frequency and Duration Frequency of Treatment 2x/Week Duration of treatment (weeks) 6 Plan of Care Start Date 11/29/24 Plan of Care End Date 01/25/25 Therapeutic Interventions Therapeutic Interventions Gait Training,Home Exercise Program,Manual Therapy, Neuromuscular Re-education, Patient/Caregiver Education, Self-Care/Home Management,Soft Tissue Mobilization,Taping, Therapeutic Activities, Therapeutic Exercises Modalities Cold Pack/Ice Massage,Electric Stimulation,Hot Packs Next Visit Focus/Plan Next Note Type Treatment Note Next Visit Plan Continue start upright bicycle with emphasis circular motion , MWM and other manual techniques. Ankle strengthening, Star slide, balance and gait training.
--- NOTE | 2024-12-23 16:31 | PT.OTN ---
Current Diagnoses Pain in left foot (12/23/24) Difficulty in walking, not elsewhere classified (12/23/24) Other abnormalities of gait and mobility (12/23/24) Weakness (12/23/24) Physical Therapy Treatment Note PT-OP-A Visit Information Start: 09/25/24 17:27 Freq: Status: Active Protocol: Document 12/23/24 08:13 SAK (Rec: 12/23/24 09:01 SAK Laptop) Out-Patient Physical Therapy Visit Information Visit Information Visit Type Treatment Note Visit Start Time 08:14 Visit Stop Time 09:10 Visit Number 12 Evaluation Information Evaluation Date 10/01/24 Precautions Precautions patient currently undergoing chemo PT-OP-B Current Condition Start: 09/25/24 17:27 Freq: Status: Active Protocol: Document 12/23/24 08:13 SAK (Rec: 12/23/24 09:01 SAK Laptop) Current Condition History of Current Condition Onset Date May 2024 Current Complaints left foot pain History of Current Condition Patient fell through rotten plank in deck, heel stuck, immediate left foot pain. x- ray negative. Went to hospital due to not feeling well about that time and was there for 22 days due to sepsis, no treatement for foot . Reports Left foot atrophied (as well as my bladder muscles, also want to deal with that.) At this time limps majority of the time, can do short distance across the room with min pain if focuses on her gait. Hasn' t used an assistive device recently. Pain varies from minimal to severe.0-9/10. Currently being treated for left chest wound seeing wound care. Current treatment for lymphoma; has 2 more chemo sessions scheduled. Side effects experiencing dizziness . Has lightening bolt pains sometimes in chest previously related to chest wound , now experiences the lightning bolt pain in foot. Difficult to move from sit to stand. Initially used a walker and a walking boot, reports a cane throws off her balance. States pain is random, most often comes at night, during day sensation of rock bruises on left heel. Wears copper compression socks. Prior Treatments and Tests x-ray negative. Treatment Goals Patient/Caregiver Goals Wants to be able to walk without pain. PT-OP-C Subjective Start: 09/25/24 17:27 Freq: Status: Active Protocol: Document 12/23/24 08:13 SAK (Rec: 12/23/24 09:01 [facility] Laptop) OP-PT Subjective Patient Comments Patient Comments Knees very sore, didn't realize how sore after moving because doesn't feel for a few days then elliptical in PT irritated her knees, though feels knees in better alignment. Limping due to persistent heel pain, reports hasn't iced. PT-OP-D Balance Start: 09/25/24 17:27 Freq: Status: Active Protocol: Document 10/01/24 10:39 SAK (Rec: 10/01/24 16:55 [facility] [id number]) OP-PT Balance Assessment Standing Balance Standing Balance Comments right 12 sec, left 0 Arvizu Fall Scale Copyright Permission PT-OP-G Mobility & Gait Start: 09/25/24 17:27 Freq: Status: Active Protocol: Document 10/01/24 10:39 [facility] (Rec: 10/01/24 16:55 [facility] [id number]) OP Mobility Evaluation Transfers Sit to Stand decreased wb left LE OP Gait Assessment Gait Gait Assistance Required: Independent Assistive Devices Assistive Device None Gait Deviations General Gait Pattern Antalgic Stair Climbing Evaluation Evaluation Level of Assist On Stairs Independent Technique/Endurance Stair Climbing Technique Step to Step PT-OP-H Neuro Start: 09/25/24 17:27 Freq: Status: Active Protocol: Document 10/01/24 10:39 [facility] (Rec: 10/01/24 16:55 [facility] [id number]) Sensation Evaluation Gross Sensation Gross Sensation WNL PT-OP-J Posture/Palpation/Skin Start: 09/25/24 17:27 Freq: Status: Active Protocol: Document 10/01/24 10:39 [facility] (Rec: 10/01/24 16:55 [facility] [id number]) Posture Evaluation Position Standing Ankle/Foot Posture (L) Supinated Foot Arch (L) High Arch Palpation Assessment Location left foot Palpation Findings Tenderness PT-OP-K Range of Motion Start: 09/25/24 17:27 Freq: Status: Active Protocol: Document 10/01/24 10:39 [facility] (Rec: 10/01/24 16:55 [facility] [id number]) Ankle and Foot Goniometric Range of Motion Ankle and Foot aris Ankle/Foot ROM WFL Yes PT-OP-M Strength Start: 09/25/24 17:27 Freq: Status: Active Protocol: Document 10/01/24 10:39 [facility] (Rec: 10/01/24 16:55 [facility] [id number]) Ankle/Foot Strength Ankle and Foot Manual Muscle Testing Left Dorsiflexion (L4) 4 Good Plantarflexion (S1) 4- Good- Inversion 4 Good Eversion (S1) 4 Good Right Dorsiflexion (L4) 5 Normal Plantarflexion (S1) 5 Normal Inversion 5 Normal Eversion (S1) 5 Normal Toe Strength Toe Manual Muscle Testing Left Flexion 4- Good- Extension 4 Good Right Flexion 5 Normal Extension 5 Normal PT-OP-Q Treatments Start: 09/25/24 17:27 Freq: Status: Active Protocol: Document 12/23/24 08:13 SAK (Rec: 12/23/24 09:01 [facility] Laptop) Cardio Equipment Bicycle (Upright) Duration (Minutes) 6 Resistance 3 Seat Position 4 Therapeutic Exercises Sitting Exercises hamstring curl Equipment Used L2 TB Reps/Minutes 10x Standing Exercises stair lunge Equipment Used 6 stairs (2nd stair)x 10 Comments heel down, able to achieve full motion, no anterior pinching heel raise Equipment Used EZRA Reps/Minutes 10x knees straight X 10 knees bent Comments cues for increased work to left LE gastroc and soleus stretch Reps/Minutes 2x60 Comments On EZRA, then on stairs hallway Gait Training Gait Activity 2 Description stairs Device Used 1 rail Level of Assistance SBA, cues Surface 4 stairs Distance/Duration 20 stairs ascend and descend x2 Comments cues for eccentric control lowering, gluteal activation ascending Manual Therapy Treatment Joint Mobilizations subtalar Direction distraction and post glide Grade III Body Position long sit Reps/Duration 10x2 PT-OP-R Modalities Start: 09/25/24 17:27 Freq: Status: Active Protocol: Document 12/23/24 08:13 SAK (Rec: 12/24/24 10:27 [facility] Laptop) Hot Pack/Cold Pack Treatment Cold Pack Location left foot/ankle Patient Position Hooklying Patient Tolerance Good PT-OP-T Assessment and Plan Start: 09/25/24 17:27 Freq: Status: Active Protocol: Document 12/23/24 08:13 SAK (Rec: 12/23/24 09:01 [facility] Laptop) Physical Therapy Assessment Goals Three Impairment poor balance, unable to stand on left LE Auto Service Station Attendant Goal (LTG) 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 to 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 power systems engineer left LE for at least 10 sec as measure of improved balance and decreased pain left LE 12/11/24:Improved, can stand on left leg but needs UE support , goal progress LTG Duration 01/29/25 Two Impairment antalgic gait, step-to pattern on stairs Short Term Goal (STG) 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 to ambulate with no limp on level surfaces 12/11/24: goal met STG Duration goal met Group Home Goal (LTG) 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 to ambulate on all surfaces without limp and alternating pattern on stairs 12/11/24: can ascend stairs alternating pattern , but step -to pattern descending stairs due to pinching pain ant/ lateral left ankle. Needs UE support descending LTG Duration 01/29/25 One Impairment weakness left foot and ankle Short Term Goal (STG) Patient to be instructed in HEP for purposes of left ankle and foot strengthening 12/11/24: goal met STG Duration goal met Auto Service Station Attendant Goal (LTG) Patient to be independent with HEP and demonstrate improvement in left foot and ankle strength to 512/11/24: strength left ankle df 4+/5, pf 4/5, inv 4-/5, ev 3+/5. LTG Duration 01/29/25 Assessment Summary Assessment Patient heel more sore past couple weeks, though hasn't iced. Impingment anterior ankle weightbearing, though with dec WB stair lunges as well as stretching with strap and subtalar posterior glide no pain. Reviewed and stressed importance of HEP and self mob and stretching as well as icing. Planned for follow-up appointment in 1 month Physical Therapy Plan Frequency and Duration Frequency of Treatment follow up 1 visit Duration of treatment (weeks) 4 Plan of Care Start Date 11/29/24 Plan of Care End Date 01/25/25 Therapeutic Interventions Therapeutic Interventions Gait Training,Home Exercise Program,Manual Therapy, Neuromuscular Re-education, Patient/Caregiver Education, Self-Care/Home Management,Soft Tissue Mobilization,Taping, Therapeutic Activities, Therapeutic Exercises Modalities Cold Pack/Ice Massage,Electric Stimulation,Hot Packs Next Visit Focus/Plan Next Note Type Re-Evaluation Next Visit Plan follow up in 1 month
--- NOTE | 2025-01-22 10:25 | PT-OP ANOTE ---
cancelled appt. Had discussed that if patient did not feel need for follow-up appointment she could cancel. As she has cancelled patient will be discharged from PT.
--- NOTE | 2025-01-22 10:27 | PT.OPDS ---
Current Diagnoses Pain in left foot (12/23/24) Difficulty in walking, not elsewhere classified (12/23/24) Other abnormalities of gait and mobility (12/23/24) Weakness (12/23/24) Visit Care Team Role Provider Type Regine Prakash MD Attending Provider Physician Family Provider Primary Care Provider Referring Provider Specialty: Family Practice ADMINISTRATIVE SALES ASSISTANT Address: [address] [place] [address], [facility] Email: [email or web address] Visit Number Visit Number 12 Discharge Summary PT-OP-B Current Condition Start: 09/25/24 17:27 Freq: Status: Active Protocol: Document 12/23/24 08:13 SAK (Rec: 12/23/24 09:01 SAK Laptop) Current Condition History of Current Condition Onset Date May 2024 Current Complaints left foot pain History of Current Condition Patient fell through rotten plank in deck, heel stuck, immediate left foot pain. x- ray negative. Went to hospital due to not feeling well about that time and was there for 22 days due to sepsis, no treatement for foot . Reports Left foot atrophied (as well as my bladder muscles, also want to deal with that.) At this time limps majority of the time, can do short distance across the room with min pain if focuses on her gait. Hasn' t used an assistive device recently. Pain varies from minimal to severe.0-9/10. Currently being treated for left chest wound seeing wound care. Current treatment for lymphoma; has 2 more chemo sessions scheduled. Side effects experiencing dizziness . Has lightening bolt pains sometimes in chest previously related to chest wound , now experiences the lightning bolt pain in foot. Difficult to move from sit to stand. Initially used a walker and a walking boot, reports a cane throws off her balance. States pain is random, most often comes at night, during day sensation of rock bruises on left heel. Wears copper compression socks. Prior Treatments and Tests x-ray negative. Treatment Goals Patient/Caregiver Goals Wants to be able to walk without pain. PT-OP-C Subjective Start: 09/25/24 17:27 Freq: Status: Active Protocol: Document 12/23/24 08:13 SAK (Rec: 12/23/24 09:01 [facility] Laptop) OP-PT Subjective Patient Comments Patient Comments Knees very sore, didn't realize how sore after moving because doesn't feel for a few days then elliptical in PT irritated her knees, though feels knees in better alignment. Limping due to persistent heel pain, reports hasn't iced. PT-OP-D Balance Start: 09/25/24 17:27 Freq: Status: Active Protocol: Document 10/01/24 10:39 SAK (Rec: 10/01/24 16:55 [facility] [id number]) OP-PT Balance Assessment Standing Balance Standing Balance Comments right 12 sec, left 0 Arvizu Fall Scale Copyright Permission PT-OP-G Mobility & Gait Start: 09/25/24 17:27 Freq: Status: Active Protocol: Document 10/01/24 10:39 [facility] (Rec: 10/01/24 16:55 [facility] [id number]) OP Mobility Evaluation Transfers Sit to Stand decreased wb left LE OP Gait Assessment Gait Gait Assistance Required: Independent Assistive Devices Assistive Device None Gait Deviations General Gait Pattern Antalgic Stair Climbing Evaluation Evaluation Level of Assist On Stairs Independent Technique/Endurance Stair Climbing Technique Step to Step PT-OP-H Neuro Start: 09/25/24 17:27 Freq: Status: Active Protocol: Document 10/01/24 10:39 [facility] (Rec: 10/01/24 16:55 [facility] [id number]) Sensation Evaluation Gross Sensation Gross Sensation WNL PT-OP-J Posture/Palpation/Skin Start: 09/25/24 17:27 Freq: Status: Active Protocol: Document 10/01/24 10:39 [facility] (Rec: 10/01/24 16:55 [facility] [id number]) Posture Evaluation Position Standing Ankle/Foot Posture (L) Supinated Foot Arch (L) High Arch Palpation Assessment Location left foot Palpation Findings Tenderness PT-OP-K Range of Motion Start: 09/25/24 17:27 Freq: Status: Active Protocol: Document 10/01/24 10:39 [facility] (Rec: 10/01/24 16:55 [facility] [id number]) Ankle and Foot Goniometric Range of Motion Ankle and Foot aris Ankle/Foot ROM WFL Yes PT-OP-M Strength Start: 09/25/24 17:27 Freq: Status: Active Protocol: Document 10/01/24 10:39 [facility] (Rec: 10/01/24 16:55 [facility] [id number]) Ankle/Foot Strength Ankle and Foot Manual Muscle Testing Left Dorsiflexion (L4) 4 Good Plantarflexion (S1) 4- Good- Inversion 4 Good Eversion (S1) 4 Good Right Dorsiflexion (L4) 5 Normal Plantarflexion (S1) 5 Normal Inversion 5 Normal Eversion (S1) 5 Normal Toe Strength Toe Manual Muscle Testing Left Flexion 4- Good- Extension 4 Good Right Flexion 5 Normal Extension 5 Normal PT-OP-T Assessment and Plan Start: 09/25/24 17:27 Freq: Status: Active Protocol: Document 12/23/24 08:13 [facility] (Rec: 12/23/24 09:01 [facility] Laptop) Physical Therapy Assessment Goals Three Impairment poor balance, unable to stand on left LE Personal Health Coach Goal (LTG) 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 to flow machine operator left LE for at least 10 sec as measure of improved balance and decreased pain left LE 12/11/24:Improved, can stand on left leg but needs UE support , goal progress LTG Duration 01/29/25 Two Impairment antalgic gait, step-to pattern on stairs Short Term Goal (STG) 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 to ambulate with no limp on level surfaces 12/11/24: goal met STG Duration goal met Personal Health Coach Goal (LTG) 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 to ambulate on all surfaces without limp and alternating pattern on stairs 12/11/24: can ascend stairs alternating pattern , but step -to pattern descending stairs due to pinching pain ant/ lateral left ankle. Needs UE support descending LTG Duration 01/29/25 One Impairment weakness left foot and ankle Short Term Goal (STG) Patient to be instructed in HEP for purposes of left ankle and foot strengthening 12/11/24: goal met STG Duration goal met Personal Health Coach Goal (LTG) Patient to be independent with HEP and demonstrate improvement in left foot and ankle strength to 01/1912/11/24: strength left ankle df 4+/5, pf 4/5, inv 4-/5, ev 3+/5. LTG Duration 01/29/25 Assessment Summary Assessment Patient heel more sore past couple weeks, though hasn't iced. Impingment anterior ankle weightbearing, though with dec WB stair lunges as well as stretching with strap and subtalar posterior glide no pain. Reviewed and stressed importance of HEP and self mob and stretching as well as icing. Planned for follow-up appointment in 1 month Physical Therapy Plan Frequency and Duration Frequency of Treatment follow up 1 visit Duration of treatment (weeks) 4 Plan of Care Start Date 11/29/24 Plan of Care End Date 01/25/25 Therapeutic Interventions Therapeutic Interventions Gait Training,Home Exercise Program,Manual Therapy, Neuromuscular Re-education, Patient/Caregiver Education, Self-Care/Home Management,Soft Tissue Mobilization,Taping, Therapeutic Activities, Therapeutic Exercises Modalities Cold Pack/Ice Massage,Electric Stimulation,Hot Packs Next Visit Focus/Plan Next Note Type Re-Evaluation Next Visit Plan follow up in 1 month
== END 2025-03-23 10:24 | disposition home or self-care (01) ==
LOC: PHYS 08:15
PROVIDERS: Family Provider Family Medicine; PCP Family Medicine; Referring Provider Family Medicine; Visit Provider Family Medicine
DX: M79.672 Pain in left foot (principal); R26.89 Other abnormalities of gait and mobility; R26.2 Difficulty in walking, not elsewhere classified; R53.1 Weakness
CPT/HCPCS: 97110; 97112; 97116; 97140; 97162; 97535

== ENCOUNTER → 2024-12-29 09:20 | Outpatient (CLI) | payer MEDICARE, MEDICAID, SELFPAY | PROVIDERS: Family Provider Family Medicine; PCP Family Medicine; Referring Provider Family Medicine; Visit Provider Surgery | DX: S21.102A Unspecified open wound of left front wall of thorax without penetration into thoracic cavity, initial encounter (principal); C50.912 Malignant neoplasm of unspecified site of left female breast; L53.8 Other specified erythematous conditions | CPT/HCPCS: 11042; 99213 ==

== ENCOUNTER → 2025-01-12 08:53 | Outpatient (CLI) | payer MEDICARE, MEDICAID, SELFPAY | PROVIDERS: Family Provider Family Medicine; PCP Family Medicine; Referring Provider Family Medicine; Visit Provider Surgery | DX: L59.8 Other specified disorders of the skin and subcutaneous tissue related to radiation (principal); S21.102A Unspecified open wound of left front wall of thorax without penetration into thoracic cavity, initial encounter; C50.912 Malignant neoplasm of unspecified site of left female breast; L53.8 Other specified erythematous conditions | CPT/HCPCS: 11042 ==

== ENCOUNTER → 2025-01-26 15:03 | Outpatient (CLI) | payer MEDICARE, MEDICAID, SELFPAY | LOC: WC 15:07 | PROVIDERS: Family Provider Family Medicine; PCP Family Medicine; Referring Provider Family Medicine; Visit Provider Surgery | DX: S21.102A Unspecified open wound of left front wall of thorax without penetration into thoracic cavity, initial encounter (principal); I89.0 Lymphedema, not elsewhere classified; C50.912 Malignant neoplasm of unspecified site of left female breast | CPT/HCPCS: 11042 ==

== ENCOUNTER → 2025-02-10 09:56 | Outpatient (CLI) | payer MEDICARE, MEDICAID, SELFPAY | PROVIDERS: Family Provider Family Medicine; PCP Family Medicine; Referring Provider Family Medicine; Visit Provider Surgery | DX: C50.912 Malignant neoplasm of unspecified site of left female breast (principal); S21.002A Unspecified open wound of left breast, initial encounter; I89.0 Lymphedema, not elsewhere classified; L53.9 Erythematous condition, unspecified | CPT/HCPCS: 11042 ==

== ENCOUNTER → 2025-02-25 11:27 | Outpatient (CLI) | payer MEDICARE, MEDICAID, SELFPAY | LOC: WC 11:45 | PROVIDERS: Family Provider Family Medicine; PCP Family Medicine; Referring Provider Family Medicine; Visit Provider Surgery | DX: C50.912 Malignant neoplasm of unspecified site of left female breast (principal); S21.102A Unspecified open wound of left front wall of thorax without penetration into thoracic cavity, initial encounter; I89.0 Lymphedema, not elsewhere classified; Z87.891 Personal history of nicotine dependence | CPT/HCPCS: 11042; 99213 ==

== ENCOUNTER → 2025-03-05 15:27 | Outpatient (CLI) | payer MEDICARE, MEDICAID, SELFPAY | PROVIDERS: Family Provider Family Medicine; PCP Family Medicine; Referring Provider Family Medicine; Visit Provider Surgery | DX: C50.912 Malignant neoplasm of unspecified site of left female breast (principal); S21.002A Unspecified open wound of left breast, initial encounter; L98.8 Other specified disorders of the skin and subcutaneous tissue; C85.90 Non-Hodgkin lymphoma, unspecified, unspecified site | CPT/HCPCS: 99213 ==

== ENCOUNTER → 2025-03-16 08:49 | Outpatient (CLI) | payer MEDICARE, MEDICAID, SELFPAY | PROVIDERS: PCP Family Medicine; Visit Provider Obstetrics & Gynecology Gynecology | DX: N39.498 Other specified urinary incontinence (principal) | CPT/HCPCS: 87086 ==

== ENCOUNTER → 2025-03-17 15:44 | Outpatient (CLI) | payer MEDICARE, MEDICAID, SELFPAY | LOC: WC 15:46 | PROVIDERS: PCP Family Medicine; Referring Provider Family Medicine; Visit Provider Surgery | DX: S21.102D Unspecified open wound of left front wall of thorax without penetration into thoracic cavity, subsequent encounter (principal); S21.002D Unspecified open wound of left breast, subsequent encounter; Z85.72 Personal history of non-Hodgkin lymphomas; I89.0 Lymphedema, not elsewhere classified; Z85.3 Personal history of malignant neoplasm of breast; Z92.21 Personal history of antineoplastic chemotherapy | CPT/HCPCS: 99212; 99213 ==

== ENCOUNTER → 2025-07-06 15:47 | Outpatient (CLI) | payer MEDICARE, MEDICAID, SELFPAY ==
[2025-07-06 16:21] LABS: Add Manual Diff / Slide Review NO; Hematocrit 38.7 % (36-46); Hemoglobin 13.5 g/dL (12.0-16.0); Lymphocytes Absolute Auto 1100 /uL (1100-4500); Mean Corpuscular HGB Conc 34.9 % (30-36); Mean Corpuscular Hemoglobin 30.3 PG (26-34); Mean Corpuscular Volume 86.9 fL (80-100); Platelet Count 234 X10^3/uL (150-400)
[2025-07-06 16:50] LABS: Alanine Aminotransferase 14 IU/L (<35); Albumin 4.3 g/dL (3.5-5.0); Albumin Globulin Ratio 1.9 (1.0-2.8); Alkaline Phosphatase 83 U/L (38-126); Blood Urea Nitrogen 16 mg/dL (7-17); Calcium 9.6 mg/dL (8.4-10.2); Carbon Dioxide 28 mmol/L (22-32); Chloride 104 mmol/L (98-107); Cholesterol 248 mg/dL (140-199); Estimated Glomerular Filt Rate > 60 mL/min (>60); Globulin 2.3 g/dL (1.7-4.1); Glucose 99 mg/dL (70-99); HDL Cholesterol 93 mg/dL (40-60); HEMOLYSIS < 15 (0-50); Potassium 4.3 mmol/L (3.4-5.1); Sodium 137 mmol/L (137-145); Total Protein 6.6 g/dL (6.3-8.2); Triglycerides 153 mg/dL (35-150)
== END ==
PROVIDERS: PCP Family Medicine; Referring Provider Family Medicine; Visit Provider Family Medicine
DX: R63.4 Abnormal weight loss (principal); R53.0 Neoplastic (malignant) related fatigue
CPT/HCPCS: 36415; 80053; 80061; 85025